=== PATIENT | female | born 1930 | race Caucasian/White ===

== ENCOUNTER 2016-12-20 19:06 | Emergency (ER) | payer MEDICARE, MEDICAID ==
[2016-12-20 19:44] VITALS: BP 145/65
[2016-12-20] MEDS ORDERED: Sodium Chloride 0.9% 10 ML Syringe FLUSH PRN (19:49)
[2016-12-20] MEDS ORDERED: Sodium Chloride 0.9% 1,000 ML IV SCH (20:00)
[2016-12-20 21:04] LABS: CHLORIDE,CL 104 mmol/L (98-107); SODIUM,NA 138 mmol/L (136-145)
[2016-12-20] MEDS ORDERED: diphenhydrAMINE 25 MG Cap PO ONE (21:34)
[2016-12-20] MEDS ORDERED: Meclizine 25 MG Tab PO ONE (21:34)
[2016-12-20] MEDS ORDERED: Cephalexin 500 MG Cap PO ONE (21:43)
--- NOTE | 2016-12-20 22:03 | EDM.PDOC ---
ED HPI GENERAL MEDICAL PROBLEM - General Chief Complaint: ENT Problem Stated Complaint: Dizziness, sinus congestion Time Seen by Provider: 12/20/16 20:50 Source of Information: Reports: Patient History Limitations: Reports: No Limitations - History of Present Illness INITIAL COMMENTS - FREE TEXT/NARRATIVE: Patient arrives with complaints of dizziness. She also has multiple chronic condition complaints that are not new including sinus infection, soreness to her back, chills, fever, weakness, all well documented complaints. She has had dizziness in the past. Meclizine has made it worse, though she states it usually does make this better. No nausea, vomiting, urinary symptoms, no blood in stool or urine, no SOB, chest pain, headaches. History of HTN, hypothyroidism, diabetes, she reports an old possible [place] and CVA, pacemaker insertion, copd, chf. Onset: Gradual Onset Date: 12/17/16 Duration: Getting Worse Location: Reports: Head Quality: Reports: Other (dizziness) Severity: Moderate Worsens with: Reports: Movement Associated Symptoms: Reports: Fever/Chills whole body, fibermyalgia Pain Score (Numeric/FACES): 8 - Related Data Allergies Allergy/AdvReac Type Severity Reaction Status Date / Time acetaminophen [From Tylenol] Allergy Cannot Verified 12/20/16 19:44 Remember amoxicillin [Amoxicillin] Allergy Cannot Verified 12/20/16 19:44 Remember aspirin Allergy Stomach Verified 12/20/16 19:44 Upset Dairy Products Allergy Cannot Verified 12/20/16 19:44 Remember Penicillins Allergy Rash Verified 12/20/16 19:44 propoxyphene HCl Allergy Cannot Verified 12/20/16 19:44 [From Darvon] Remember eggs Allergy Cannot Uncoded 12/20/16 19:44 Remember Home Meds: Home Meds Albuterol Sulfate [Albuterol Sulfate HFA] 8.5 gm IH ASDIRECTED PRN 09/08/13 [ History] Aspirin [Halfprin] 81 mg PO DAILY 09/08/13 [History] Atenolol [Tenormin] 25 mg PO DAILY #30 tablet 09/08/13 [Rx] Cod Liver Oil 1 cap PO DAILY 09/08/13 [History] Fish Oil/[place]-3 Fatty Acids [Fish Oil 1,000 MG] 1 gm PO DAILY 09/08/13 [History ] Furosemide [Lasix] 20 mg PO DAILY PRN 09/08/13 [History] Sucralfate [Carafate] 1 gm PO BID 09/08/13 [History] Levothyroxine [Synthroid] 25 mcg PO ACBRK #0 03/06/15 [Rx] Meclizine HCl [Antivert] 25 mg PO Q4H PRN 12/26/15 [History] Ondansetron [Zofran ODT] 4 mg PO Q6H PRN 12/26/15 [History] Nitroglycerin [IJP: Nitroglycerin] 0.4 mg SL ASDIRECTED PRN #30 tablet, sublingual 12/27/15 [Rx] Past Medical History HEENT History: Reports: Cataract Cardiovascular History: Reports: Angina, Hypertension, Pacemaker, Syncope Respiratory History: Reports: Asthma, COPD, SOB, Other (See Below) Other Respiratory History: emphysema Gastrointestinal History: Reports: GERD Genitourinary History: Reports: Urinary Incontinence Musculoskeletal History: Reports: Fibromyalgia Neurological History: Reports: Vertigo Endocrine/Metabolic History: Reports: Diabetes, Type II Oncologic (Cancer) History: Reports: Cervix - Past Surgical History GI Surgical History: Reports: Appendectomy, Cholecystectomy Social & Family History - Tobacco Use Smoking Status *Q: Never Smoker Second Hand Smoke Exposure: No - Alcohol Use Days Per Week of Alcohol Use: 0 - Recreational Drug Use Recreational Drug Use: No ED ROS GENERAL - Review of Systems Review Of Systems: See Below Constitutional: Reports: Fever, Chills HEENT: Reports: Eye Discharge, Sinus Problem Respiratory: Reports: No Symptoms Cardiovascular: Reports: Lightheadedness Endocrine: Reports: No Symptoms GI/Abdominal: Reports: No Symptoms : Reports: No Symptoms Musculoskeletal: Reports: Muscle Stiffness, Other (pain reported all over due to fibromyalgia) Skin: Reports: No Symptoms Neurological: Reports: Dizziness Psychiatric: Reports: No Symptoms Hematologic/Lymphatic: Reports: No Symptoms Immunologic: Reports: No Symptoms ED EXAM, DIZZINESS - Physical Exam Exam: See Below Exam Limited By: No Limitations General Appearance: Alert, WD/WN, No Apparent Distress Eye Exam: Bilateral Eye: EOMI, PERRL Ears: Normal TMs Nose: Nasal Tenderness, Nasal Swelling Throat/Mouth: Inflammation Head Exam: Atraumatic, Normocephalic Neck: Lymphadenopathy (L), Lymphadenopathy (R) Respiratory/Chest: No Respiratory Distress, No Accessory Muscle Use, Chest Non- Tender, Rales Cardiovascular: Normal Peripheral Pulses, Regular Rate, Rhythm, Systolic Murmur , Other (atrial paced) Neurological: Alert, Normal Mood/Affect, Normal Dorsiflexion, CN II-XII Intact, Normal Plantar Flexion, Normal Gait, Normal Reflexes, No Motor/Sensory Deficits , Oriented x 3 Back Exam: Normal Inspection Extremities: Normal Inspection, Normal Range of Motion, Non-Tender, No Pedal Edema, Normal Capillary Refill Psychiatric: Normal Affect, Normal Mood Skin Exam: Warm, Dry, Intact, Normal Color, No Rash EKG INTERPRETATION EKG Date: 12/20/16 Time: 20:23 Rhythm: Other (atrial paced, v paced) Rate (Beats/Min): 72 Course - Vital Signs Last Recorded V/S: Last Vital Signs Temp 37.3 C 12/20/16 19:36 Pulse 61 12/20/16 19:36 Resp 16 12/20/16 19:36 BP 145/65 H 12/20/16 19:36 Pulse Ox 95 12/20/16 19:36 - Orders/Labs/Meds Orders: Active Orders 24 hr Category Date Time Status EKG Documentation Completion [RC] ROUTINE Care 12/20/16 19:47 Active Chest 2V [CR] Stat Exams 12/20/16 19:47 Taken Saline Lock Insert [OM.PC] Routine Oth 12/20/16 19:49 Ordered Labs: Laboratory Tests 12/20/16 12/20/16 12/20/16 Range/Units 20:00 20:18 20:18 WBC 11.8 H (4.0-10.0) x10^3/uL RBC 3.96 L (4.00-5.50) x10^6/uL Hgb 12.9 (12.0-16.0) g/dL Hct 38.8 (33.0-47.0) % MCV 98.0 H (78.0-93.0) fL MCH 32.6 H (26.0-32.0) pg MCHC 33.2 (32.0-36.0) g/dL RDW Coeff of Ghada 13.4 (10.0-15.0) % Plt Count 295 (130-400) x10^3/uL Neut % (Auto) 69.9 (50.0-80.0) % Lymph % (Auto) 18.7 L (25.0-50.0) % Burke % (Auto) 8.7 (2.0-11.0) % Eos % (Auto) 2.3 (0.0-4.0) % Baso % (Auto) 0.4 (0.2-1.2) % PT 10.4 (10.0-12.8) SEC INR 0.9 L (2.0-3.5) Sodium (136-145) mmol/L Potassium (3.5-5.1) mmol/L Chloride (98-107) mmol/L Carbon Dioxide (21-32) mmol/L BUN (7-18) mg/dL Creatinine (0.55-1.02) mg/dL Est Cr Clr Drug Dosing Estimated GFR (MDRD) Glucose (74-106) mg/dL Calcium (8.5-10.1) mg/dL Corrected Calcium (8.5-10.1) mg/dL Magnesium (1.8-2.4) mg/dL Total Bilirubin (0.2-1.0) mg/dL AST (15-37) U/L ALT (14-59) U/L Alkaline Phosphatase (46-116) U/L Creatine Kinase (26-192) U/L Creatine Kinase Index (0.0-4.0) % CK-MB (CK-2) (0.0-3.6) ng/mL Troponin I (<=0.056) ng/mL C-Reactive Protein (<=0.9) mg/dL B-Natriuretic Peptide (<=450) pg/mL Total Protein (6.4-8.2) g/dL Albumin (3.4-5.0) g/dL Globulin Albumin/Globulin Ratio TSH, Ultra Sensitive (0.358-3.74) uIU/mL Urine Color Yellow (YELLOW) Urine Appearance Clear (CLEAR) Urine pH 6.0 (5.0-8.0) Ur Specific Fries <=1.005 Urine Protein Negative (NEGATIVE) mg/dL Urine Glucose (UA) Negative (NEGATIVE) mg/dL Urine Ketones Negative (NEGATIVE) mg/dL Urine Occult Blood Negative (NEGATIVE) Urine Nitrite Negative (NEGATIVE) Urine Bilirubin Negative (NEGATIVE) Urine Urobilinogen 0.2 (0.2) EU/dL Ur Leukocyte Esterase Negative (NEGATIVE) Urine RBC 0-5 (NOT SEEN) /HPF Urine WBC 0-5 (NOT SEEN) /HPF Ur Squamous Epith Cells Few H (NEGATIVE) /HPF Urine Bacteria Rare (NEGATIVE) /HPF Urine Mucus Not seen (NEGATIVE) /LPF 12/20/16 Range/Units 20:18 WBC (4.0-10.0) x10^3/uL RBC (4.00-5.50) x10^6/uL Hgb (12.0-16.0) g/dL Hct (33.0-47.0) % MCV (78.0-93.0) fL MCH (26.0-32.0) pg MCHC (32.0-36.0) g/dL RDW Coeff of Ghada (10.0-15.0) % Plt Count (130-400) x10^3/uL Neut % (Auto) (50.0-80.0) % Lymph % (Auto) (25.0-50.0) % Burke % (Auto) (2.0-11.0) % Eos % (Auto) (0.0-4.0) % Baso % (Auto) (0.2-1.2) % PT (10.0-12.8) SEC INR (2.0-3.5) Sodium 138 (136-145) mmol/L Potassium 4.1 (3.5-5.1) mmol/L Chloride 104 (98-107) mmol/L Carbon Dioxide 27 (21-32) mmol/L BUN 19 H (7-18) mg/dL Creatinine 1.0 (0.55-1.02) mg/dL Est Cr Clr Drug Dosing TNP Estimated GFR (MDRD) 53 Glucose 124 H (74-106) mg/dL Calcium 8.2 L (8.5-10.1) mg/dL Corrected Calcium 8.60 (8.5-10.1) mg/dL Magnesium 2.1 (1.8-2.4) mg/dL Total Bilirubin 0.3 (0.2-1.0) mg/dL AST 15 (15-37) U/L ALT 23 (14-59) U/L Alkaline Phosphatase 48 (46-116) U/L Creatine Kinase 96 (26-192) U/L Creatine Kinase Index 0.8 (0.0-4.0) % CK-MB (CK-2) 0.8 (0.0-3.6) ng/mL Troponin I < 0.017 (<=0.056) ng/mL C-Reactive Protein 0.3 (<=0.9) mg/dL B-Natriuretic Peptide 353 (<=450) pg/mL Total Protein 7.2 (6.4-8.2) g/dL Albumin 3.5 (3.4-5.0) g/dL Globulin 3.7 Albumin/Globulin Ratio 0.95 TSH, Ultra Sensitive 7.003 H (0.358-3.74) uIU/mL Urine Color (YELLOW) Urine Appearance (CLEAR) Urine pH (5.0-8.0) Ur Specific Fries Urine Protein (NEGATIVE) mg/dL Urine Glucose (UA) (NEGATIVE) mg/dL Urine Ketones (NEGATIVE) mg/dL Urine Occult Blood (NEGATIVE) Urine Nitrite (NEGATIVE) Urine Bilirubin (NEGATIVE) Urine Urobilinogen (0.2) EU/dL Ur Leukocyte Esterase (NEGATIVE) Urine RBC (NOT SEEN) /HPF Urine WBC (NOT SEEN) /HPF Ur Squamous Epith Cells (NEGATIVE) /HPF Urine Bacteria (NEGATIVE) /HPF Urine Mucus (NEGATIVE) /LPF Meds: Medications Discontinued Medications Generic Name Dose Route Start Last Admin Trade Name Freq PRN Reason Stop Dose Admin Cephalexin 500 mg 12/20/16 21:43 Keflex PO 12/20/16 21:44 ONETIME ONE Diphenhydramine HCl 25 mg 12/20/16 21:34 Benadryl PO 12/20/16 21:35 ONETIME ONE Sodium Chloride 1,000 mls @ 500 mls/hr 12/20/16 20:00 12/20/16 20:30 Normal Saline IV 500 mls/hr ASDIRECTED YAMILETH Administration Meclizine HCl 25 mg 12/20/16 21:34 Antivert PO 12/20/16 21:35 ONETIME ONE Sodium Chloride 10 ml 12/20/16 19:49 Saline Flush FLUSH ASDIRECTED PRN Keep Vein Open Departure - Departure Time of Disposition: 22:17 Disposition: Home, Self-Care 01 Condition: Good Clinical Impression: Dizziness - Discharge Information Instructions: Labyrinthitis, [id number] Referrals: Melyssa Kendall DO [Primary Care Provider] - Forms: ED Department Discharge Additional Instructions: Follow up with your primary provider for symptom management Your TSH level is 7 which is high and you should address increasing your synthroid All other labwork is normal. I am going to prescribe cephalexin with your history of sinus infection. You may continue to try the atrovert and dramamine or benadryl. You may also want to visit with someone regarding the negra maneuver if this dizziness is related to ear problems. Also visit with your primary regarding a cardiology and neurology consultation to rule out these areas of causes. Stay hydrated. Please call us with any questions or concerns. - Problem List & Annotations (1) Dizziness SNOMED Code(s): 150525811, [id number] Code(s): R42 - DIZZINESS AND GIDDINESS Status: Acute Priority: Low - Problem List Review Problem List Initiated/Reviewed/Updated: Yes - My Orders Last 24 Hours: My Active Orders 12/20/16 19:47 EKG Documentation Completion [RC] ROUTINE Chest 2V [CR] Stat 12/20/16 19:49 Saline Lock Insert [OM.PC] Routine - Assessment/Plan Last 24 Hours: My Active Orders 12/20/16 19:47 EKG Documentation Completion [RC] ROUTINE Chest 2V [CR] Stat 12/20/16 19:49 Saline Lock Insert [OM.PC] Routine Assessment:: dizziness sinus infection Plan: Follow up with your primary provider for symptom management Your TSH level is 7 which is high and you should address increasing your synthroid All other labwork is normal. I am going to prescribe cephalexin with your history of sinus infection. You may continue to try the atrovert and dramamine or benadryl. You may also want to visit with someone regarding the negra maneuver if this dizziness is related to ear problems. Also visit with your primary regarding a cardiology and neurology consultation to rule out these areas of causes. Stay hydrated. Please call us with any questions or concerns.
== END 2016-12-20 22:30 | disposition home or self-care (01) ==
LOC: VM.ED 19:06
DX: R42 Dizziness and giddiness (principal); I10 Essential (primary) hypertension; I20.9 Angina pectoris, unspecified; Z95.0 Presence of cardiac pacemaker; J45.909 Unspecified asthma, uncomplicated; J44.9 Chronic obstructive pulmonary disease, unspecified; K21.9 Gastro-esophageal reflux disease without esophagitis; E11.9 Type 2 diabetes mellitus without complications; Z85.41 Personal history of malignant neoplasm of cervix uteri; Z90.49 Acquired absence of other specified parts of digestive tract; Z79.82 Long term (current) use of aspirin; Z79.899 Other long term (current) drug therapy; Z88.0 Allergy status to penicillin; Z88.8 Allergy status to other drugs, medicaments and biological substances; Z91.012 Allergy to eggs
CPT/HCPCS: 36415; 71020; 80053; 81001; 82550; 82553; 83735; 83880; 84443; 84484; 85025; 85610; 86140; 93005; 96360; 96361; 99284; A9270; J7030

== ENCOUNTER 2017-01-03 20:31 | Emergency (ER) | payer MEDICARE, MEDICAID ==
[2017-01-03 20:44] VITALS: BP 124/62
[2017-01-03] MEDS ORDERED: Ketorolac 30 MG/ML SDV IM ONE (20:44)
[2017-01-03] MEDS ORDERED: Take Home: traMADol 50 MG, 4 Tab Pack PO ONE (21:12)
--- NOTE | 2017-01-05 00:54 | ER ---
Date of Service: 01/03/2017 SUBJECTIVE: Alice presents emergency room with complaints of neck and back pain as well as discomfort across her shoulders. She states the discomfort is worse with movement. She does have a history of fibromyalgia. She states that she has been having this discomfort for some time but decided to come in to the emergency room for evaluation today. The patient states that she is not experiencing any chest pain or shortness of breath and states this is similar discomfort to what she has experienced in the past from her fibromyalgia. PAST MEDICAL HISTORY: 1. Hypertension. 2. Dyslipidemia. 3. Hypothyroidism. MEDICATIONS: 1. Atenolol. 2. Aspirin. 3. Albuterol sulfate. 4. Lasix. 5. [place]-3 fish oil. 6. Cod liver oil. 7. Carafate. 8. Nitroglycerin. 9. Antivert. 10.Synthroid. ALLERGIES: Amoxicillin, acetaminophen, aspirin, dairy products, penicillin, propoxyphene, and eggs. REVIEW OF SYSTEMS: General: Denies any fever, chills, chest pain, shortness of breath, abdominal pain, nausea, vomiting, or diarrhea. PHYSICAL EXAMINATION: General: This is an 86-year-old female patient, who is in no acute distress. Vital signs: Blood pressure is 124/62, pulse rate is 95, temperature is 37.4, respiratory rate 16, O2 saturation is 95%. Skin: Warm, pink, and dry. HEENT: Head is normocephalic, atraumatic. Eyes, PERRLA. Extraocular movements are intact. Lungs: Clear to auscultation. Heart: Regular rate and rhythm. Spine: She does have discomfort on palpation to the paraspinal muscles of her cervical, thoracic, and lumbar spine, as well as discomfort across the tops of her shoulders. No obvious trauma abnormal findings noted. There are no obvious erythema or other pathology noted. Neurovascular: Circulation, sensation, and motor function are all within normal limits in distal portion of her extremities. EMERGENCY ROOM COURSE: The patient was given injection of Toradol 30 mg IM. She did report some improvement in her discomfort. She remained stable in my care in the emergency room. ASSESSMENT: Acute on chronic pain. PLAN: The patient will be discharged. I advised her to follow up with her primary care provider in the next 7 to 10 days. All questions were answered. MWK: 01/04/2017 18:58:17 MODL: 01/05/2017 00:47:10 /[id number]
== END 2017-01-03 21:33 | disposition home or self-care (01) ==
LOC: VM.ED 20:31
DX: G89.29 Other chronic pain (principal); M54.2 Cervicalgia; M54.5 Low back pain; M54.6 Pain in thoracic spine; M25.511 Pain in right shoulder; M25.512 Pain in left shoulder; I10 Essential (primary) hypertension; E03.9 Hypothyroidism, unspecified; Z88.1 Allergy status to other antibiotic agents; Z88.8 Allergy status to other drugs, medicaments and biological substances; Z91.011 Allergy to milk products; Z88.0 Allergy status to penicillin; Z91.012 Allergy to eggs
CPT/HCPCS: 96372; 99283; A9270; J1885

== ENCOUNTER 2017-01-07 00:24 | Emergency (ER) | payer MEDICARE, MEDICAID ==
[2017-01-07 00:28] VITALS: BP 155/72
--- NOTE | 2017-01-07 00:45 | EDM.PDOCBH ---
ED HPI GENERAL MEDICAL PROBLEM - General Chief Complaint: Behavioral/Psych Stated Complaint: "nerves" Time Seen by Provider: 01/07/17 00:43 Source of Information: Reports: Patient, RN, RN Notes Reviewed History Limitations: Reports: No Limitations - History of Present Illness INITIAL COMMENTS - FREE TEXT/NARRATIVE: Patient presents to the ED at [facility] complaining of acute on chronic back pain that started to get worse last week. She states she was in this ER last Wednesday for the same problem. She was given in injection of Toradol and a take home pack of Tramadol and sent home. She was advised to follow up with her Primary this week. She states she has an appointment with a new Primary this Wednesday. No new injury or trauma. No headaches. No SOB or chest pain. Patient denies any trouble with ambulation. Patient denies any bowel or bladder problems. No numbness, tingling, or paresthesia. Patient states the pain starts at her tailbone and radiation up to her neck. Pain is a dull ache. Onset: Gradual Duration: Chronic, Waxing/Waning Location: Reports: Neck, Back Quality: Reports: Dull Severity: Mild Improves with: Reports: Rest Worsens with: Reports: Movement Context: Denies: Activity, Exercise, Lifting, Sick Contact, Trauma Associated Symptoms: Reports: No Other Symptoms Lower Back Pain Score (Numeric/FACES): 8 - Related Data Allergies Allergy/AdvReac Type Severity Reaction Status Date / Time acetaminophen [From Tylenol] Allergy Other Verified 01/07/17 00:32 amoxicillin [Amoxicillin] Allergy Rash Verified 01/07/17 00:32 aspirin Allergy Stomach Verified 01/07/17 00:32 Upset Dairy Products Allergy Cough Verified 01/07/17 00:32 Penicillins Allergy Rash Verified 01/07/17 00:32 propoxyphene HCl Allergy Other Verified 01/07/17 00:32 [From Darvon] eggs Allergy Cough Uncoded 01/07/17 00:32 Home Meds: Home Meds Albuterol Sulfate [Albuterol Sulfate HFA] 8.5 gm IH ASDIRECTED PRN 09/08/13 [ History] Aspirin [Halfprin] 81 mg PO DAILY 09/08/13 [History] Atenolol [Tenormin] 25 mg PO DAILY #30 tablet 09/08/13 [Rx] Cod Liver Oil 1 cap PO DAILY 09/08/13 [History] Fish Oil/[place]-3 Fatty Acids [Fish Oil 1,000 MG] 1 gm PO DAILY 09/08/13 [History ] Furosemide [Lasix] 20 mg PO DAILY PRN 09/08/13 [History] Sucralfate [Carafate] 1 gm PO BID 09/08/13 [History] Levothyroxine [Synthroid] 25 mcg PO ACBRK #0 03/06/15 [Rx] Meclizine HCl [Antivert] 25 mg PO Q4H PRN 12/26/15 [History] Nitroglycerin [IJP: Nitroglycerin] 0.4 mg SL ASDIRECTED PRN #30 tablet, sublingual 12/27/15 [Rx] traMADol HCl [Tramadol HCl] 50 mg PO ASDIRECTED PRN 01/07/17 [History] Past Medical History HEENT History: Reports: Cataract Cardiovascular History: Reports: Angina, Hypertension, Pacemaker, Syncope Respiratory History: Reports: Asthma, COPD, SOB, Other (See Below) Other Respiratory History: emphysema Gastrointestinal History: Reports: GERD Genitourinary History: Reports: Urinary Incontinence Musculoskeletal History: Reports: Arthritis, Fibromyalgia Neurological History: Reports: Vertigo Endocrine/Metabolic History: Reports: Diabetes, Type II Oncologic (Cancer) History: Reports: Cervix - Past Surgical History GI Surgical History: Reports: Appendectomy, Cholecystectomy Social & Family History - Tobacco Use Smoking Status *Q: Never Smoker Second Hand Smoke Exposure: No - Caffeine Use Caffeine Use: Reports: Coffee - Alcohol Use Days Per Week of Alcohol Use: 0 - Recreational Drug Use Recreational Drug Use: No ED ROS GENERAL - Review of Systems Review Of Systems: See Below Constitutional: Denies: Fever, Chills, Weakness Respiratory: Denies: Shortness of Breath, Cough Cardiovascular: Denies: Chest Pain, Palpitations Musculoskeletal: Reports: Neck Pain, Back Pain Skin: Reports: No Symptoms Neurological: Reports: No Symptoms. Denies: Dizziness, Headache, Numbness, Paresthesia, Tingling ED EXAM, BEHAVIORAL HEALTH - Physical Exam Exam: See Below Exam Limited By: No Limitations General Appearance: Alert, No Apparent Distress Head: Atraumatic, Normocephalic Neck: Normal Inspection, Supple, Non-Tender, Full Range of Motion Respiratory/Chest: No Respiratory Distress, Lungs Clear, Normal Breath Sounds Cardiovascular: Regular Rate, Rhythm Back Exam: Normal Inspection, Paraspinal Tenderness Extremities: Normal Inspection Neurological: Alert, Oriented x 3 Skin Exam: Warm, Dry, Intact, Normal color, No rash COURSE, BEHAVIORAL HEALTH COMP - Course Vital Signs: Last Vital Signs Temp 36.9 C 01/07/17 00:25 Pulse 100 01/07/17 00:25 Resp 18 01/07/17 00:25 BP 155/72 H 01/07/17 00:25 Pulse Ox 94 L 01/07/17 00:25 Orders, Labs, Meds: Active Orders 24 hr Category Date Time Status Ketorolac [Toradol] Med 01/07/17 00:55 Once 60 mg IM ONETIME ONE Departure - Departure Time of Disposition: :01 Disposition: Home, Self-Care 01 Condition: Good Clinical Impression: Acute exacerbation of chronic low back pain Chronic pain Qualifiers: Chronic pain type: other chronic pain Qualified Code(s): G89.29 - Other chronic pain - Discharge Information Instructions: Chronic Pain, Back Exercises, Back Pain, Adult Referrals: Yahaira Gentile MD [Physician] - Forms: ED Department Discharge Additional Instructions: 1. Stay well hydrated and rest 2. Alternate heat/ice to your back to help with pain 3. Take pain medication sparingly; this medication can make you drowsy 4. May take Tylenol as needed 5. Keep appointment for this Wednesday with Dr. Gentile for a recheck and to establish care - Problem List Review Problem List Initiated/Reviewed/Updated: Yes - My Orders Last 24 Hours: My Active Orders 01/07/17 00:55 Ketorolac [Toradol] 60 mg IM ONETIME ONE - Assessment/Plan Last 24 Hours: My Active Orders 01/07/17 00:55 Ketorolac [Toradol] 60 mg IM ONETIME ONE
[2017-01-07] MEDS ORDERED: Ketorolac 60 MG/2 ML SDV IM ONE (00:55)
[2017-01-07] MEDS ORDERED: Take Home: traMADol 50 MG, 4 Tab Pack PO ONE (01:04)
== END 2017-01-07 01:30 | disposition home or self-care (01) ==
LOC: VM.ED 00:24
DX: M54.5 Low back pain (principal); G89.29 Other chronic pain; I10 Essential (primary) hypertension; J45.909 Unspecified asthma, uncomplicated; J44.9 Chronic obstructive pulmonary disease, unspecified; K21.9 Gastro-esophageal reflux disease without esophagitis; M19.90 Unspecified osteoarthritis, unspecified site; E11.9 Type 2 diabetes mellitus without complications; Z90.49 Acquired absence of other specified parts of digestive tract; Z85.41 Personal history of malignant neoplasm of cervix uteri; Z79.82 Long term (current) use of aspirin; Z79.899 Other long term (current) drug therapy; Z88.6 Allergy status to analgesic agent; Z88.1 Allergy status to other antibiotic agents; Z88.0 Allergy status to penicillin; Z88.8 Allergy status to other drugs, medicaments and biological substances; Z91.012 Allergy to eggs
CPT/HCPCS: 96372; 99283; A9270; J1885

== ENCOUNTER 2019-12-16 00:14 | Observation (INO) | payer MEDICARE, MEDICAID ==
--- NOTE | 2019-12-16 00:57 | EDM.PDOC ---
ED HPI GENERAL MEDICAL PROBLEM - General Chief Complaint: Cardiovascular Problem Stated Complaint: Chest pain, generalized pain all over Time Seen by Provider: 12/16/19 00:30 Source of Information: Reports: Patient, EMS, EMS Notes Reviewed History Limitations: Reports: No Limitations - History of Present Illness INITIAL COMMENTS - FREE TEXT/NARRATIVE: Comes into the emergency department via EMS with complaints of chest discomfort. Patient called 911 tonight after she felt someone was trying to break into her apartment. Once police were on scene she had told the police that she had been having some chest pain throughout the entire day and they suggested that she in the emergency department. Patient states that she has a longstanding history of cardiac disease and chronic chest pain. Patient states that she has chest pain almost on a daily basis. Her chest pain was there this morning and has continued throughout the day it has not progressively gotten worse and has not gotten any better. She states the discomfort is the same sensation that she experiences on a daily basis when she has the chest pain. She also states that it is tender to palpate over her entire chest region. Also has fibromyalgia and often states that that is a major flare up of the chronic chest pain. Patient denies a chest pain causing her shortness of breath, radiation shoulder, head ache, nausea vomiting, diaphoresis, GI upset, loss of bowel or bladder continence, or peripheral edema. Patient states that she is been relatively healthy. She denies any COVID-19 symptoms. Onset: Gradual Quality: Reports: Ache Severity: Mild Improves with: Reports: None Worsens with: Reports: None Associated Symptoms: Reports: No Other Symptoms mid sternal chest Pain Score (Numeric/FACES): 5 - Related Data Allergies Allergy/AdvReac Type Severity Reaction Status Date / Time acetaminophen [From Tylenol] Allergy Other Verified 12/16/19 00:48 amoxicillin [Amoxicillin] Allergy Rash Verified 12/16/19 00:48 atorvastatin [From Lipitor] Allergy Cannot Verified 12/16/19 00:48 Remember metoprolol Allergy Cannot Verified 12/16/19 00:48 Remember Penicillins Allergy Rash Verified 12/16/19 00:48 propoxyphene HCl Allergy Other Verified 12/16/19 00:48 [From Darvon] aspirin AdvReac Stomach Verified 12/16/19 00:48 Upset Dairy Products AdvReac Cough Verified 12/16/19 00:48 eggs AdvReac Cough Uncoded 12/16/19 00:48 Home Meds: Home Meds Albuterol Sulfate [Albuterol Sulfate HFA] 2 puff IH QID PRN 09/08/13 [History] Cod Liver Oil 1 cap PO DAILY 09/08/13 [History] Furosemide [Lasix] 20 mg PO DAILY 09/08/13 [History] Levothyroxine [Synthroid] 25 mcg PO ACBRK #0 03/06/15 [Rx] Nitroglycerin [IJP: Nitroglycerin] 0.4 mg SL ASDIRECTED PRN #30 tablet, sublingual 12/27/15 [Rx] Atenolol [Tenormin] 12.5 mg PO DAILY 05/25/17 [History] Cholecalciferol (Vitamin D3) [D-2000] 2,000 unit PO DAILY 05/25/17 [History] Ubidecarenone [Co Q-10] 100 mg PO DAILY 05/25/17 [History] Fluticasone Propionate [Flonase] 50 mcg NS DAILY 07/12/17 [History] Olopatadine [Pataday 0.2% Ophth Soln] 1 drop OP DAILY PRN 07/12/17 [History] Trolamine Salicylate [Aspercreme] 1 applic TP BID PRN 07/12/17 [History] Levothyroxine Sodium [Synthroid] 25 mcg PO ACBREAKFAST 12/01/17 [History] Tobramycin/Dexamethasone [Tobramycin-Dexameth Ophth Susp] 1 drop OP TID 12/01/17 [History] Rivaroxaban [Xarelto] 20 mg PO DAILY 12/16/19 [History] Past Medical History HEENT History: Reports: Cataract Cardiovascular History: Reports: Angina, Hypertension, Pacemaker, Syncope Respiratory History: Reports: Asthma, COPD, SOB, Other (See Below) Other Respiratory History: emphysema Gastrointestinal History: Reports: GERD Genitourinary History: Reports: Urinary Incontinence Musculoskeletal History: Reports: Arthritis, Fibromyalgia Neurological History: Reports: Vertigo Endocrine/Metabolic History: Reports: Diabetes, Type II Oncologic (Cancer) History: Reports: Cervix - Past Surgical History GI Surgical History: Reports: Appendectomy, Cholecystectomy Social & Family History - Caffeine Use Caffeine Use: Reports: Coffee ED ROS GENERAL - Review of Systems Review Of Systems: Comprehensive ROS is negative, except as noted in HPI. Constitutional: Reports: No Symptoms HEENT: Reports: No Symptoms Respiratory: Reports: No Symptoms Endocrine: Reports: No Symptoms GI/Abdominal: Reports: No Symptoms : Reports: No Symptoms Musculoskeletal: Reports: No Symptoms Skin: Reports: No Symptoms Neurological: Reports: No Symptoms Psychiatric: Reports: No Symptoms Hematologic/Lymphatic: Reports: No Symptoms Immunologic: Reports: No Symptoms ED EXAM, GENERAL - Physical Exam Exam: See Below Exam Limited By: No Limitations General Appearance: Alert, WD/WN, No Apparent Distress Head: Atraumatic, Normocephalic Neck: Normal Inspection, Supple, Non-Tender, Full Range of Motion Respiratory/Chest: No Respiratory Distress, Lungs Clear, Normal Breath Sounds, No Accessory Muscle Use, Chest Non-Tender Cardiovascular: Normal Peripheral Pulses, Regular Rate, Rhythm, No Edema Peripheral Pulses: 3+: Radial (L), Radial (R) GI/Abdominal: Normal Bowel Sounds, Soft, Non-Tender, No Distention, No Mass Back Exam: Normal Inspection, Full Range of Motion Extremities: Normal Inspection, Normal Range of Motion, Non-Tender, No Pedal Edema, Normal Capillary Refill Neurological: Alert, Oriented Psychiatric: Normal Affect, Normal Mood Skin Exam: Warm, Dry, Intact, Normal Color Course - Vital Signs Last Recorded V/S: Last Vital Signs Temp 37.1 C 12/16/19 00:14 Pulse 74 12/16/19 00:14 Resp 16 12/16/19 00:14 BP 153/71 H 12/16/19 00:14 Pulse Ox 95 12/16/19 00:14 - Orders/Labs/Meds Orders: Active Orders 24 hr Category Date Time Status EKG Documentation Completion [RC] STAT Care 12/16/19 00:39 Active Chest 1V Frontal [CR] Stat Exams 12/16/19 00:39 Taken Labs: Laboratory Tests 12/16/19 12/16/19 12/16/19 Range/Units 01:03 01:03 01:03 WBC 9.7 (4.0-10.0) x10^3/uL RBC 4.13 (4.00-5.50) x10^6/uL Hgb 13.1 (12.0-16.0) g/dL Hct 38.7 (33.0-47.0) % MCV 93.7 H D (78.0-93.0) fL MCH 31.7 (26.0-32.0) pg MCHC 33.9 (32.0-36.0) g/dL RDW Coeff of Ghada 12.7 (10.0-15.0) % Plt Count 273 (130-400) x10^3/uL Add Manual Diff Yes Neutrophils % (Manual) 63 (50-80) % Band Neutrophils % 6 (0-6) % Lymphocytes % (Manual) 14 L (25-50) % Monocytes % (Manual) 15 H (2-11) % Eosinophils % (Manual) 2 (0-4) % Hypersegmented Neuts Rare H Vacuolated Monocytes 2+ moderate H Toxic Granulation 1+ slight H Platelet Estimate Adequate Macrocytosis 1+ slight H PT 15.5 H (9.5-12.3) SEC INR 1.5 L (2.0-3.5) Sodium 135 L (136-145) mmol/L Potassium 4.1 (3.5-5.1) mmol/L Chloride 98 (98-107) mmol/L Carbon Dioxide 27 (21-32) mmol/L Anion Gap 14.1 (10-20) mmol/L BUN 17 (7-18) mg/dL Creatinine 0.8 (0.55-1.02) mg/dL Est Cr Clr Drug Dosing 41.97 mL/min Estimated GFR (MDRD) > 60 Glucose 140 H (74-106) mg/dL Calcium 9.0 (8.5-10.1) mg/dL Corrected Calcium 9.32 (8.5-10.1) mg/dL Total Bilirubin 0.3 (0.2-1.0) mg/dL AST 33 (15-37) U/L ALT 37 (14-59) U/L Alkaline Phosphatase 66 (46-116) U/L POC Troponin I (0.00-0.08) ng/mL Total Protein 7.4 (6.4-8.2) g/dL Albumin 3.6 (3.4-5.0) g/dL Globulin 3.8 Albumin/Globulin Ratio 0.95 //20 Range/Units 01:05 WBC (4.0-10.0) x10^3/uL RBC (4.00-5.50) x10^6/uL Hgb (12.0-16.0) g/dL Hct (33.0-47.0) % MCV (78.0-93.0) fL MCH (26.0-32.0) pg MCHC (32.0-36.0) g/dL RDW Coeff of Ghada (10.0-15.0) % Plt Count (130-400) x10^3/uL Add Manual Diff Neutrophils % (Manual) (50-80) % Band Neutrophils % (0-6) % Lymphocytes % (Manual) (25-50) % Monocytes % (Manual) (2-11) % Eosinophils % (Manual) (0-4) % Hypersegmented Neuts Vacuolated Monocytes Toxic Granulation Platelet Estimate Macrocytosis PT (9.5-12.3) SEC INR (2.0-3.5) Sodium (136-145) mmol/L Potassium (3.5-5.1) mmol/L Chloride (98-107) mmol/L Carbon Dioxide (21-32) mmol/L Anion Gap (10-20) mmol/L BUN (7-18) mg/dL Creatinine (0.55-1.02) mg/dL Est Cr Clr Drug Dosing mL/min Estimated GFR (MDRD) Glucose (74-106) mg/dL Calcium (8.5-10.1) mg/dL Corrected Calcium (8.5-10.1) mg/dL Total Bilirubin (0.2-1.0) mg/dL AST (15-37) U/L ALT (14-59) U/L Alkaline Phosphatase (46-116) U/L POC Troponin I 0.00 (0.00-0.08) ng/mL Total Protein (6.4-8.2) g/dL Albumin (3.4-5.0) g/dL Globulin Albumin/Globulin Ratio Departure - Departure Time of Disposition: 01:40 Disposition: Home, Self-Care 01 Condition: Fair Clinical Impression: Pleuritic chest pain - Discharge Information *PRESCRIPTION DRUG MONITORING PROGRAM REVIEWED*: Not Applicable *COPY OF PRESCRIPTION DRUG MONITORING REPORT IN PATIENT [facility]: Not Applicable Instructions: Chest Wall Pain, [id number], Nonspecific Chest Pain, Adult Forms: ED Department Discharge Additional Instructions: 1. rest 2. increase your water intake 3. Continue all at home medications 4. Activity and diet as tolerated 5. Can take over the counter Tylenol or ibuprofen for any pain or discomfort 6. Follow up with PCP if symptoms continue, return, or progress 7. Call with any questions or concerns Sepsis Event Note (ED) - Focused Exam Vital Signs: Vital Signs Temp Pulse Resp BP Pulse Ox 12/16/19 00:14 37.1 C 74 16 153/71 H 95 - My Orders Last 24 Hours: My Active Orders 12/16/19 00:39 EKG Documentation Completion [RC] STAT Chest 1V Frontal [CR] Stat - Assessment/Plan Last 24 Hours: My Active Orders 12/16/19 00:39 EKG Documentation Completion [RC] STAT Chest 1V Frontal [CR] Stat Assessment:: 1. pleuritic chest pain Plan: 1. Labs completed in the ER. Results reviewed with the patient 2. Chest xray completed in ER. Results reviewed with the patient 3. EKG was completed in ER. Results reviewed with the patient 4. Patient and nursing staff was updated regarding the plan of care 5. Education provided the patient regarding activity, diet, rest, [id number] medication modalities, and follow-up care was provided 6. Patient and family are agreeable to the above plan of care 7. All questions and concerns were addressed with the patient and family prior to discharge
[2019-12-16 01:31] LABS: CHLORIDE,CL 98 mmol/L (98-107); SODIUM,NA 135 mmol/L (136-145)
[2019-12-16 01:33] LABS: ANION GAP 14.1 mmol/L (10-20)
[2019-12-16] MEDS ORDERED: Non-Formulary Medication 1 Each (Nystatin [Nystatin] 1 APPLIC) TOP PRN (03:47)
[2019-12-16] MEDS ORDERED: OLOPATADINE OP PRN (03:47)
[2019-12-16] MEDS ORDERED: Nitroglycerin 0.4 MG Tab.SL SL PRN (03:47)
[2019-12-16] MEDS: Levothyroxine 25 MCG Tab PO SCH (07:41)
[2019-12-16] MEDS: Atenolol 25 MG Tab PO SCH (07:42)
[2019-12-16] MEDS: Cholecalciferol (Vitamin D3) 25 MCG Tab PO SCH (07:42)
[2019-12-16] MEDS: Furosemide 20 MG Tab PO SCH (07:42)
[2019-12-16] MEDS ORDERED: Non-Formulary Medication 1 Each (Ubidecarenone [Co Q-10] 100 MG) PO SCH (08:00)
[2019-12-16] MEDS ORDERED: COD LIVER OIL PO SCH (08:00)
[2019-12-16] MEDS ORDERED: Non-Formulary Medication 1 Each (Rivaroxaban [Xarelto] 20 MG) PO SCH (08:00)
--- NOTE | 2019-12-16 11:18 | CR ---
[id number] RAD/RAD Chest PA or AP 1V EXAM: SINGLE VIEW CHEST. INDICATION: CHEST PAIN COMPARISON: CORRELATION IS MADE WITH DECEMBER 20, 2016 FINDINGS: The lungs are clear The cardiomediastinal contour is stable A pacemaker is seen IMPRESSION: NO PNEUMONIA OR EDEMA Ash Rico MD 12/16/19 0823 Thank you for allowing us to participate in the care of your patient.
[2019-12-16] MEDS ORDERED: Rivaroxaban 10 MG Tab PO SCH (18:00)
--- NOTE | 2019-12-16 20:22 | PCM.PN ---
- General Info Date of Service: 12/16/19 Admission Dx/Problem (Free Text): Hallucinations Functional Status: Reports: Pain Controlled, Tolerating Diet, Ambulating - Review of Systems General: Reports: Weakness, Malaise HEENT: Reports: No Symptoms Pulmonary: Reports: Pleuritic Chest Pain. Denies: Shortness of Breath, Cough Cardiovascular: Reports: Edema. Denies: Chest Pain, Lightheadedness Gastrointestinal: Denies: Abdominal Pain, Nausea, Vomiting Musculoskeletal: Reports: No Symptoms Skin: Reports: No Symptoms Neurological: Reports: Weakness - Patient Data Vitals - Most Recent: Last Vital Signs Temp 98.5 F 12/16/19 18:00 Pulse 70 12/16/19 18:00 Resp 16 12/16/19 14:00 BP 145/69 H 12/16/19 18:00 Pulse Ox 93 L 12/16/19 18:00 Weight - Most Recent: 208 lb I&O - Last 24 Hours: Intake & Output 12/16/19 12/16/19 12/16/19 06:59 14:59 22:59 Intake Total 200 480 120 Output Total 350 400 Balance -150 480 -280 Lab Results Last 24 Hours: Laboratory Results - last 24 hr 12/16/19 12/16/19 12/16/19 Range/Units 01:03 01:03 01:03 WBC 9.7 (4.0-10.0) x10^3/uL RBC 4.13 (4.00-5.50) x10^6/uL Hgb 13.1 (12.0-16.0) g/dL Hct 38.7 (33.0-47.0) % MCV 93.7 H D (78.0-93.0) fL MCH 31.7 (26.0-32.0) pg MCHC 33.9 (32.0-36.0) g/dL RDW Coeff of Ghada 12.7 (10.0-15.0) % Plt Count 273 (130-400) x10^3/uL Add Manual Diff Yes Neutrophils % (Manual) 63 (50-80) % Band Neutrophils % 6 (0-6) % Lymphocytes % (Manual) 14 L (25-50) % Monocytes % (Manual) 15 H (2-11) % Eosinophils % (Manual) 2 (0-4) % Hypersegmented Neuts Rare H Vacuolated Monocytes 2+ moderate H Toxic Granulation 1+ slight H Platelet Estimate Adequate Macrocytosis 1+ slight H PT 15.5 H (9.5-12.3) SEC INR 1.5 L (2.0-3.5) Sodium 135 L (136-145) mmol/L Potassium 4.1 (3.5-5.1) mmol/L Chloride 98 (98-107) mmol/L Carbon Dioxide 27 (21-32) mmol/L Anion Gap 14.1 (10-20) mmol/L BUN 17 (7-18) mg/dL Creatinine 0.8 (0.55-1.02) mg/dL Est Cr Clr Drug Dosing 41.97 mL/min Estimated GFR (MDRD) > 60 Glucose 140 H (74-106) mg/dL Calcium 9.0 (8.5-10.1) mg/dL Corrected Calcium 9.32 (8.5-10.1) mg/dL Total Bilirubin 0.3 (0.2-1.0) mg/dL AST 33 (15-37) U/L ALT 37 (14-59) U/L Alkaline Phosphatase 66 (46-116) U/L POC Troponin I (0.00-0.08) ng/mL Total Protein 7.4 (6.4-8.2) g/dL Albumin 3.6 (3.4-5.0) g/dL Globulin 3.8 Albumin/Globulin Ratio 0.95 06/27/20 Range/Units 01:05 WBC (4.0-10.0) x10^3/uL RBC (4.00-5.50) x10^6/uL Hgb (12.0-16.0) g/dL Hct (33.0-47.0) % MCV (78.0-93.0) fL MCH (26.0-32.0) pg MCHC (32.0-36.0) g/dL RDW Coeff of Ghada (10.0-15.0) % Plt Count (130-400) x10^3/uL Add Manual Diff Neutrophils % (Manual) (50-80) % Band Neutrophils % (0-6) % Lymphocytes % (Manual) (25-50) % Monocytes % (Manual) (2-11) % Eosinophils % (Manual) (0-4) % Hypersegmented Neuts Vacuolated Monocytes Toxic Granulation Platelet Estimate Macrocytosis PT (9.5-12.3) SEC INR (2.0-3.5) Sodium (136-145) mmol/L Potassium (3.5-5.1) mmol/L Chloride (98-107) mmol/L Carbon Dioxide (21-32) mmol/L Anion Gap (10-20) mmol/L BUN (7-18) mg/dL Creatinine (0.55-1.02) mg/dL Est Cr Clr Drug Dosing mL/min Estimated GFR (MDRD) Glucose (74-106) mg/dL Calcium (8.5-10.1) mg/dL Corrected Calcium (8.5-10.1) mg/dL Total Bilirubin (0.2-1.0) mg/dL AST (15-37) U/L ALT (14-59) U/L Alkaline Phosphatase (46-116) U/L POC Troponin I 0.00 (0.00-0.08) ng/mL Total Protein (6.4-8.2) g/dL Albumin (3.4-5.0) g/dL Globulin Albumin/Globulin Ratio Med Orders - Current: Current Medications Atenolol (Tenormin) 12.5 mg PO DAILY [facility] Last Admin: 12/16/19 07:42 Dose: 12.5 mg Documented by: Cholecalciferol (Vitamin D3) 50 mcg PO DAILY [facility] Last Admin: 12/16/19 07:42 Dose: 50 mcg Documented by: Furosemide (Lasix) 20 mg PO DAILY [facility] Last Admin: 12/16/19 07:42 Dose: 20 mg Documented by: Levothyroxine Sodium (Levothyroxine) 25 mcg PO ACBREAKFAST [facility] Last Admin: 12/16/19 07:41 Dose: 25 mcg Documented by: Nitroglycerin (Nitrostat) 0.4 mg SL ASDIRECTED PRN PRN Reason: Chest Pain Rivaroxaban (Xarelto) 15 mg PO WITHDINNER [facility] Last Admin: 12/16/19 18:45 Dose: 15 mg Documented by: Discontinued Medications Non-Formulary Medication (Cod Liver Oil [Cod Liver Oil]) 1 cap PO DAILY [facility] Last Admin: 12/16/19 18:41 Dose: Not Given Documented by: Non-Formulary Medication (Nystatin [Nystatin]) 1 applic TOP BID PRN PRN Reason: Rash Non-Formulary Medication (Olopatadine [Pataday 0.2% Ophth Soln]) 1 drop OP DAILY PRN PRN Reason: Allergies Non-Formulary Medication (Ubidecarenone [Co Q-10]) 100 mg PO DAILY [facility] Last Admin: 12/16/19 18:41 Dose: Not Given Documented by: - Exam General: Alert, Oriented HEENT: Mucous Membr. Moist/[place] Neck: Supple Lungs: Clear to Auscultation, Normal Respiratory Effort Cardiovascular: Regular Rate, Regular Rhythm GI/Abdominal Exam: Normal Bowel Sounds, Soft, Non-Tender Extremities: Pedal Edema (1+) Skin: Warm, Dry Neurological: No New Focal Deficit Sepsis Event Note - Evaluation Sepsis Screening Result: No Definite Risk - Focused Exam Vital Signs: Vital Signs Temp Pulse Resp BP Pulse Ox 12/16/19 18:00 98.5 F 70 145/69 H 93 L 12/16/19 14:00 98.8 F 64 16 138/95 H 95 Date Exam was Performed: 12/16/19 Time Exam was Performed: 20:17 - Problem List & Annotations (1) Hallucinations SNOMED Code(s): 9534962 Code(s): R44.3 - HALLUCINATIONS, UNSPECIFIED Status: Acute Priority: High Current Visit: Yes - Problem List Review Problem List Initiated/Reviewed/Updated: Yes - Assessment Assessment:: Hallucinations - Plan Plan:: Patient admits to ongoing pleuritic chest discomfort. States "has been like this for years". Admits to leg discomfort, asks for lotion to legs as that typically helps discomfort and the "tightness" of them. Does have edema to lower legs. patient is ambulating with staff. Family was to present today for discharge but was unable to, plans for discharge tomorrow. Family is aware does need assistance and plan is to consider this after discharge.
[2019-12-17] MEDS: Levothyroxine 25 MCG Tab PO SCH (06:40)
[2019-12-17] MEDS: Atenolol 25 MG Tab PO SCH (07:49)
[2019-12-17] MEDS: Furosemide 20 MG Tab PO SCH (07:51)
[2019-12-17] MEDS: Cholecalciferol (Vitamin D3) 25 MCG Tab PO SCH (07:51)
[2019-12-17 11:17] VITALS: BP 148/63; PULSE 68
--- NOTE | 2019-12-17 11:58 | PCM.DCSUM1 ---
Discharge Summary - Hospital Course Free Text/Narrative:: Alice is an 89 year old female who presented to the ER with complaints of chest discomfort. Patient had called for EMS during the night as she felt someone was trying to break in to her apartment. Reports that it is a big apartment complex with a lot of people "milling around". Once police arrived on the scene, she told the police she was having chest discomfort. Patient has a history of chest discomfort and cardiac disease. Admits having chest pain almost on a daily basis and had progressed throughout the day of arrival to ER. Had tenderness with palpation to her anterior chest with palpation per ER provider. Has a history of fibromyalgia which she feels contributes to her chest discomfort. Cardiac work up done in the ER was negative. Patient was essentially discharged to home but she had voiced concerns of fear of returning there. Police department had thoroughly checked her place and did not find anything out of the ordinary. Family was contacted and were unable to come at that time. Per her records, has a history of hallucinations. Family reports situations have been checked due to her fears but found them to be unfounded and has been ongoing for years. Admitted as vulnerable adult. Diagnosis: Stroke: No Modified Deven Scale: No Symptoms at All Modified Deven Scale Score: 0 - Discharge Data Discharge Date: 12/17/19 Discharge Disposition: Home, Self-Care 01 Condition: Stable - Referral to Home Health Primary Care Physician: Mary Marie NP - Discharge Diagnosis/Problem(s) (1) Hallucinations SNOMED Code(s): 7584026 ICD Code: R44.3 - HALLUCINATIONS, UNSPECIFIED Status: Acute Priority: High Current Visit: Yes - Patient Summary/Data Complications: none Hospital Course: Patient is up and around in room today. Good appetite. States is hoping to find someone to stay with her at her home at night in the event she would need assistance. She reports she has looked in to assisted living at [facility] but "need to be better at ambulating there to be independent". Would like to try it at home for another month with assistance at night. Admits her chest discomfort is stable at this point. No shortness of breath, nausea or vomiting. Family will take patient home at discharge and find assistance as needed. - Patient Instructions Diet: Usual Diet as Tolerated Activity: As Tolerated Other/Special Instructions: Follow up with PCP as needed - Discharge Plan *PRESCRIPTION DRUG MONITORING PROGRAM REVIEWED*: Not Applicable *COPY OF PRESCRIPTION DRUG MONITORING REPORT IN PATIENT [facility]: Not Applicable Home Medications: Home Meds Albuterol Sulfate [Albuterol Sulfate HFA] 2 puff IH QID PRN 09/08/13 [History] Cod Liver Oil 1 cap PO DAILY 09/08/13 [History] Furosemide [Lasix] 20 mg PO DAILY 09/08/13 [History] Nitroglycerin [IJP: Nitroglycerin] 0.4 mg SL ASDIRECTED PRN #30 tablet, sublingual 12/27/15 [Rx] Atenolol [Tenormin] 12.5 mg PO DAILY 05/25/17 [History] Cholecalciferol (Vitamin D3) [D3-2000] 2,000 unit PO DAILY 05/25/17 [History] Ubidecarenone [Co Q-10] 100 mg PO DAILY 05/25/17 [History] Olopatadine [Pataday 0.2% Ophth Soln] 1 drop OP DAILY PRN 07/12/17 [History] Levothyroxine Sodium [Synthroid] 25 mcg PO ACBREAKFAST 12/01/17 [History] Nystatin 1 applic TOP BID PRN 12/16/19 [History] Rivaroxaban [Xarelto] 20 mg PO DAILY 12/16/19 [History] Patient Handouts: Chest Wall Pain, [id number], Nonspecific Chest Pain, Adult Forms: ED Department Discharge - Discharge Summary/Plan Comment DC Time >30 min.: No - General Info Date of Service: 12/17/19 Admission Dx/Problem (Free Text: Hallucinations Functional Status: Reports: Pain Controlled, Tolerating Diet, Ambulating - Review of Systems General: Reports: Weakness, Fatigue, Malaise HEENT: Reports: No Symptoms Pulmonary: Reports: Pleuritic Chest Pain. Denies: Shortness of Breath, Cough Cardiovascular: Reports: Edema. Denies: Chest Pain, Lightheadedness Gastrointestinal: Denies: Abdominal Pain, Nausea, Vomiting Genitourinary: Reports: No Symptoms Musculoskeletal: Reports: No Symptoms Skin: Reports: No Symptoms Neurological: Reports: Weakness Psychiatric: Reports: No Symptoms - Patient Data Vitals - Most Recent: Last Vital Signs Temp 97.6 F 12/17/19 10:00 Pulse 68 12/17/19 10:00 Resp 16 12/17/19 10:00 BP 148/63 H 12/17/19 10:00 Pulse Ox 94 L 12/17/19 10:00 Weight - Most Recent: 208 lb I&O - Last 24 hours: Intake & Output 12/16/19 12/17/19 12/17/19 22:59 06:59 14:59 Intake Total 120 200 300 Output Total 400 600 Balance -280 -400 300 Med Orders - Current: Current Medications Atenolol (Tenormin) 12.5 mg PO DAILY [facility] Last Admin: 12/17/19 07:49 Dose: 12.5 mg Documented by: Cholecalciferol (Vitamin D3) 50 mcg PO DAILY [facility] Last Admin: 12/17/19 07:51 Dose: 50 mcg Documented by: Furosemide (Lasix) 20 mg PO DAILY [facility] Last Admin: 12/17/19 07:51 Dose: 20 mg Documented by: Levothyroxine Sodium (Levothyroxine) 25 mcg PO ACBREAKFAST [facility] Last Admin: 12/17/19 06:40 Dose: 25 mcg Documented by: Nitroglycerin (Nitrostat) 0.4 mg SL ASDIRECTED PRN PRN Reason: Chest Pain Rivaroxaban (Xarelto) 15 mg PO WITHDINNER [facility] Last Admin: 12/16/19 18:45 Dose: 15 mg Documented by: Discontinued Medications Non-Formulary Medication (Cod Liver Oil [Cod Liver Oil]) 1 cap PO DAILY [facility] Last Admin: 12/16/19 18:41 Dose: Not Given Documented by: Non-Formulary Medication (Nystatin [Nystatin]) 1 applic TOP BID PRN PRN Reason: Rash Non-Formulary Medication (Olopatadine [Pataday 0.2% Ophth Soln]) 1 drop OP DAILY PRN PRN Reason: Allergies Non-Formulary Medication (Ubidecarenone [Co Q-10]) 100 mg PO DAILY [facility] Last Admin: 12/16/19 18:41 Dose: Not Given Documented by: - Exam General: Reports: Alert, Oriented HEENT: Reports: Mucous Membr. Moist/Abrams Neck: Reports: Supple Lungs: Reports: Clear to Auscultation, Normal Respiratory Effort Cardiovascular: Reports: Regular Rate, Regular Rhythm GI/Abdominal Exam: Normal Bowel Sounds, Soft, Non-Tender Extremities: Normal Inspection, Pedal Edema (1+) Skin: Reports: Warm, Dry Neurological: Reports: No New Focal Deficit
== END 2019-12-17 12:25 | disposition home or self-care (01) ==
LOC: VM.ED 00:14 → VM.MS 02:56
PROVIDERS: ADMIT Nurse Practitioner; ATTEND Nurse Practitioner
DX: R07.2 Precordial pain (principal); R44.3 Hallucinations, unspecified; I10 Essential (primary) hypertension; J43.9 Emphysema, unspecified; E11.9 Type 2 diabetes mellitus without complications; K21.9 Gastro-esophageal reflux disease without esophagitis; Z79.899 Other long term (current) drug therapy; Z79.51 Long term (current) use of inhaled steroids; Z88.0 Allergy status to penicillin; Z88.8 Allergy status to other drugs, medicaments and biological substances; Z88.6 Allergy status to analgesic agent; Z91.011 Allergy to milk products; Z91.012 Allergy to eggs; Z86.79 Personal history of other diseases of the circulatory system
CPT/HCPCS: 36415; 71045; 80053; 84484; 85025; 85610; 93005; 99285; A9270; 99217; 99220; G0378

== ENCOUNTER 2019-12-20 20:38 | Emergency (ER) | payer MEDICARE, MEDICAID ==
--- NOTE | 2019-12-20 20:53 | EDM.PDOC ---
ED HPI GENERAL MEDICAL PROBLEM - General Stated Complaint: CHEST PAIN Time Seen by Provider: 12/20/19 20:53 Source of Information: Reports: Patient, EMS History Limitations: Reports: No Limitations - History of Present Illness INITIAL COMMENTS - FREE TEXT/NARRATIVE: This patient comes emergency department today with complaints of generalized pain and chest pain. This patient lives at home alone and constantly is being harassed by her neighbors with pounding on her doors people slamming her doors and phone calls that make her very anxious. She develops pain in her chest and pain throughout her body. This is something that happens on a daily basis multiple times throughout the day. This is been going on for months. She was recently admitted into the hospital for very similar concerns and only because there was no way to discharge her. Cording to EMS and nursing staff as well this patient lives at home alone and has been investigated with the police and social studies teacher and she is hallucinating or these instances or not happening. She has been in the senior living in the past due to her paranoia and hallucinations although she is not currently in there. She complains of this generalized pain throughout her body. She is very concerned and paranoid about everything that is going on around her. She states that she regularly refuses to take her medication because any of those meds can kill her which is what she was told by her report developer. No COVID concerns. No shortness of breath. No fever no chills. No abdominal pain nausea or vomiting. Just this generalized shooting pain throughout her body and in her chest. No hematuria dysuria or urinary frequency. No black or tarry stools. mid sternal chest Pain Score (Numeric/FACES): 6 - Related Data Allergies Allergy/AdvReac Type Severity Reaction Status Date / Time acetaminophen [From Tylenol] Allergy Other Verified 12/21/19 03:06 amoxicillin [Amoxicillin] Allergy Rash Verified 12/21/19 03:06 atorvastatin [From Lipitor] Allergy Cannot Verified 12/21/19 03:06 Remember egg Allergy Cough Verified 12/21/19 03:06 metoprolol Allergy Cannot Verified 12/21/19 03:06 Remember Penicillins Allergy Rash Verified 12/21/19 03:06 propoxyphene HCl Allergy Other Verified 12/21/19 03:06 [From Darvon] aspirin AdvReac Stomach Verified 12/21/19 03:06 Upset Dairy Products AdvReac Cough Verified 12/21/19 03:06 Home Meds: Home Meds Albuterol Sulfate [Albuterol Sulfate HFA] 2 puff IH QID PRN 09/08/13 [History] Cod Liver Oil 1 cap PO DAILY 09/08/13 [History] Furosemide [Lasix] 20 mg PO DAILY 09/08/13 [History] Nitroglycerin [IJP: Nitroglycerin] 0.4 mg SL ASDIRECTED PRN #30 tablet, sublingual 12/27/15 [Rx] Atenolol [Tenormin] 12.5 mg PO DAILY 05/25/17 [History] Cholecalciferol (Vitamin D3) [D3-2000] 2,000 unit PO DAILY 05/25/17 [History] Ubidecarenone [Co Q-10] 100 mg PO DAILY 05/25/17 [History] Olopatadine [Pataday 0.2% Ophth Soln] 1 drop OP DAILY PRN 07/12/17 [History] Levothyroxine Sodium [Synthroid] 25 mcg PO ACBREAKFAST 12/01/17 [History] Nystatin 1 applic TOP BID PRN 12/16/19 [History] Rivaroxaban [Xarelto] 20 mg PO DAILY 12/16/19 [History] LORazepam [Lorazepam] 0.5 mg PO DAILY PRN #6 tablet 12/20/19 [Rx] Past Medical History HEENT History: Reports: Cataract Cardiovascular History: Reports: Angina, Hypertension, Pacemaker, Syncope Respiratory History: Reports: Asthma, COPD, SOB, Other (See Below) Other Respiratory History: emphysema Gastrointestinal History: Reports: GERD Genitourinary History: Reports: Urinary Incontinence Musculoskeletal History: Reports: Arthritis, Fibromyalgia Neurological History: Reports: Vertigo Endocrine/Metabolic History: Reports: Diabetes, Type II Oncologic (Cancer) History: Reports: Cervix - Past Surgical History GI Surgical History: Reports: Appendectomy, Cholecystectomy Social & Family History - Caffeine Use Caffeine Use: Reports: Coffee ED ROS GENERAL - Review of Systems Review Of Systems: Comprehensive ROS is negative, except as noted in HPI. ED EXAM, GENERAL - Physical Exam Exam: See Below Free Text/Narrative:: Patient is very anxious and agitated upon arrival. She is modulating tearful and laughing. She is concerned about everything in the room that could possibly hurt her. He is very anxious agitated and concerned and is aware that the symptoms have been going on for quite some time she just cannot take them anymore. Exam Limited By: Other (Anxiety) General Appearance: Alert, WD/WN, Anxious (extremely) Eye Exam: Bilateral Eye: EOMI Ears: Normal External Exam, Normal TMs Nose: Normal Inspection Throat/Mouth: Normal Inspection Head: Atraumatic, Normocephalic Neck: Normal Inspection, Supple Respiratory/Chest: No Respiratory Distress, Lungs Clear, Normal Breath Sounds, No Accessory Muscle Use Cardiovascular: Normal Peripheral Pulses, Regular Rate, Rhythm Peripheral Pulses: 2+: Radial (L), Radial (R), Posterior Tibial (L), Posterior Tibial (R), Dorsalis Pedis (L), Dorsalis Pedis (R) GI/Abdominal: Normal Bowel Sounds, Soft, Non-Tender (Female) Exam: Deferred Rectal (Female) Exam: Deferred Back Exam: Normal Inspection, Full Range of Motion Extremities: Normal Inspection, Pedal Edema (1+ bilaterally) Neurological: Alert, Oriented, CN II-XII Intact, Normal Cognition, No Motor/Sensory Deficits Psychiatric: Anxious Skin Exam: Warm, Dry, Intact, Normal Color, No Rash EKG INTERPRETATION EKG Date: 12/20/19 Time: 20:32 Rhythm: Other (Paced rhythm) Rate (Beats/Min): 72 Comparison: No Change Course - Vital Signs Last Recorded V/S: Last Vital Signs Temp 99.2 F 12/20/19 20:38 Pulse 72 12/20/19 20:38 Resp 18 12/20/19 20:38 BP 141/65 H 12/20/19 20:38 Pulse Ox 95 12/20/19 20:38 - Orders/Labs/Meds Labs: Laboratory Tests 12/20/19 12/20/19 12/20/19 Range/Units 21:17 21:17 22:00 WBC 9.0 (4.0-10.0) x10^3/uL RBC 3.74 L (4.00-5.50) x10^6/uL Hgb 12.1 (12.0-16.0) g/dL Hct 35.6 (33.0-47.0) % MCV 95.2 H (78.0-93.0) fL MCH 32.4 H (26.0-32.0) pg MCHC 34.0 (32.0-36.0) g/dL RDW Coeff of Ghada 12.8 (10.0-15.0) % Plt Count 321 (130-400) x10^3/uL Add Manual Diff Yes Neutrophils % (Manual) 58 (50-80) % Band Neutrophils % 3 (0-6) % Lymphocytes % (Manual) 22 L (25-50) % Monocytes % (Manual) 15 H (2-11) % Eosinophils % (Manual) 1 (0-4) % Metamyelocytes % 1 H (0) % Platelet Estimate Adequate Sodium 137 (136-145) mmol/L Potassium 3.7 (3.5-5.1) mmol/L Chloride 99 (98-107) mmol/L Carbon Dioxide 30 (21-32) mmol/L Anion Gap 11.7 (10-20) mmol/L BUN 13 (7-18) mg/dL Creatinine 0.9 (0.55-1.02) mg/dL Est Cr Clr Drug Dosing TNP Estimated GFR (MDRD) 59 Glucose 172 H (74-106) mg/dL Calcium 8.3 L (8.5-10.1) mg/dL Corrected Calcium 8.78 (8.5-10.1) mg/dL Total Bilirubin 0.2 (0.2-1.0) mg/dL AST 15 (15-37) U/L ALT 18 (14-59) U/L Alkaline Phosphatase 57 (46-116) U/L Troponin I < 0.017 (<=0.056) ng/mL Total Protein 6.9 (6.4-8.2) g/dL Albumin 3.4 (3.4-5.0) g/dL Globulin 3.5 Albumin/Globulin Ratio 0.97 Urine Color Light yellow (YELLOW) Urine Appearance Slightly cloudy H (CLEAR) Urine pH 5.5 (5.0-8.0) Ur Specific Emerson 1.020 Urine Protein Negative (NEGATIVE) mg/dL Urine Glucose (UA) Negative (NEGATIVE) mg/dL Urine Ketones Negative (NEGATIVE) mg/dL Urine Occult Blood Negative (NEGATIVE) Urine Nitrite Negative (NEGATIVE) Urine Bilirubin Negative (NEGATIVE) Urine Urobilinogen 0.2 (0.2) EU/dL Ur Leukocyte Esterase Trace H (NEGATIVE) Meds: Medications Discontinued Medications Generic Name Dose Route Start Last Admin Trade Name Jaquelin PRSanty Reason Stop Dose Admin Lorazepam 0.5 mg 12/20/19 20:56 12/20/19 21:05 Ativan IVPUSH 12/20/19 20:57 0.5 mg STAT ONE Administration - Re-Assessments/Exams Free Text/Narrative Re-Assessment/Exam: 12/20/19 21:08 EKG done by ambulance is no changes No ST elevation or depression. Lorazepam 0.5mg IVP. 12/20/19 21:13 I did review the patient's chart after her last hospital admission and I did verify that the police and social studies teacher are aware of this patient's concern and is been documented and more concerning that this is hallucination or paranoia that the patient is exhibiting. 12/20/19 21:46 After the ativan her CP resolved her anxiety resolved and she was just left with her chronic pain all over throughout her body. The patient was able to ambulate to the bathroom with a walker with some assistance. Eventually she did not complain of her generalized pain throughout her body that she had complained about when she came to the emergency department. She was no longer anxious or agitated. She was actually very pleasant and friendly and easy to visit with once her panic attack was under control. She would like to be admitted to the hospital because she cannot stay at home because of her concerns. She would also like to stay at the hospital because she does not feel like she should live at home by herself because of the people in her apartment making noise and it is difficult for her to live there. I explained her multiple times that we can admit people into the hospital just because they feel that they need to be. Is clearly a panic attack which has been documented in the past and some concerns for paranoia and/or hallucinations. She is not a threat to herself or others at this time. There is no acute life-threatening or emergent or urgent concern that requires hospitalization. We made multiple attempts to contact her family which they did not answer which is not unlike the last time she showed up in the ER and had to be placed on observation because they were unable to get her home. Eventually we were able to get a hold of a ride service here in [facility] that was very gracious enough in the middle the night to come to the ER and help this female get back to her house. I did give her a short course of lorazepam to help with her acute panic attacks. She really needs to see her primary care provider to continue to manage her recurrent panic attacks at home. Consideration for either senior living or assisted living as the family is shown to be of little support over the past few visits in the emergency department I think is of high priority. Defer this decision to the primary care provider. She was discharged home she was comfortable with this plan and her questions are answered. 12/21/19 13:53 Departure - Departure Time of Disposition: 23:28 Disposition: Home, Self-Care 01 Clinical Impression: Panic attack, Chest pain, non-cardiac - Discharge Information Prescriptions: LORazepam [Lorazepam] 0.5 mg PO DAILY PRN #6 tablet PRN Reason: Anxiety Instructions: Panic Attack, [id number], Nonspecific Chest Pain, Adult, [id number] Referrals: Yahaira Gentile MD [Primary Care Provider] - Forms: ED Department Discharge Additional Instructions: Lorazepam 1 tablet daily as needed for acute episodes of panic attacks. Take only when you have a panic attack. Rx was sent electronically to [facility]. Continue with your previous therapies. See your PCP on wednesday for recheck and remote computer terminal operator planning for your recurrent panic attacks. Return to the ED if new or worsening symptoms. - Assessment/Plan Assessment:: Panic attack. Noncardiac chest pain, from her panic attacks. Plan: Lorazepam 1 tablet daily as needed for acute episodes of panic attacks. Take only when you have a panic attack. Continue with your previous therapies. See your PCP on wednesday for recheck and remote computer terminal operator planning for your recurrent panic attacks. Return to the ED if new or worsening symptoms.
[2019-12-20] MEDS ORDERED: LORazepam 2 MG/ML SDV IVPUSH ONE (20:56)
[2019-12-20 21:57] LABS: CHLORIDE,CL 99 mmol/L (98-107); SODIUM,NA 137 mmol/L (136-145)
[2019-12-20 21:59] LABS: ANION GAP 11.7 mmol/L (10-20)
[2019-12-21 03:06] VITALS: BP 141/65; PULSE 72
== END 2019-12-20 23:55 | disposition home or self-care (01) ==
LOC: VM.ED 20:38
DX: F41.0 Panic disorder [episodic paroxysmal anxiety] (principal); R07.89 Other chest pain; I10 Essential (primary) hypertension; J44.9 Chronic obstructive pulmonary disease, unspecified; E11.9 Type 2 diabetes mellitus without complications; M19.90 Unspecified osteoarthritis, unspecified site; Z88.1 Allergy status to other antibiotic agents; Z88.8 Allergy status to other drugs, medicaments and biological substances; Z88.0 Allergy status to penicillin; Z88.6 Allergy status to analgesic agent; Z91.012 Allergy to eggs; Z91.011 Allergy to milk products; Z79.01 Long term (current) use of anticoagulants; Z79.899 Other long term (current) drug therapy
CPT/HCPCS: 36415; 80053; 81003; 84484; 85025; 93010; 96374; 99284-GF; 99285-25; J2060

== ENCOUNTER 2020-05-23 17:23 | Observation (INO) | payer MEDICARE, MEDICAID ==
[2020-05-23] MEDS ORDERED: Sodium Chloride 0.9% 10 ML Syringe FLUSH PRN (17:43)
[2020-05-23 18:17] LABS: CHLORIDE,CL 95 mmol/L (98-107); SODIUM,NA 131 mmol/L (136-145)
[2020-05-23 18:25] LABS: ANION GAP 12.1 mmol/L (10-20)
--- NOTE | 2020-05-23 18:29 | EDM.PDOC ---
ED HPI GENERAL MEDICAL PROBLEM - General Chief Complaint: General Stated Complaint: SOB CHEST AND BACK PAIN Time Seen by Provider: 05/23/20 17:30 Source of Information: Reports: Patient History Limitations: Reports: No Limitations - History of Present Illness INITIAL COMMENTS - FREE TEXT/NARRATIVE: Pt. presents to ER with complaints of acute on chronic shortness of breath and myalgias. She states that the discomfort got worse starting this afternoon about 3 PM. Pt. denies any recent trauma. Denies any event that happened to cause the discomfort to get worse.Denies any fever or chills. Pt. states that she has a longstanding history of chronic pain syndrome but states that it is worse today. She has chronic back pain with radiculopathy, extremity pain, and states that she has a history of peripheral edema that she states us not any worse than normal. She states that she always has a cough and that it is not any worse than normal. It is non-productive. Pt. denies any dysuria. No abdominal discomfort, nausea, vomiting, or diarrhea. Pt. has a history of dementia and previously had been in the half-way several years ago, but now lives on her own in a ground floor apartment. She does all of her own ADLs and gets meals on wheels. Pt. states that her daughter helps her with housework, but she does a majority of her domestic work on her own. Today, EMS was summoned to bring the patient to ER. They state that she was hemodynamically stable and then became tachycardic. She was placed on the nuclear monitoring technician, which showed a wide complex tachycardia in the 130-140 range. This resolved rapidly without intervention. AICD did not appear to discharge. She has a history of CAD and has a pacemaker due to complete heart block. She also has a history of paroxysmal atrial fib and is on xaralto and atenolol. Onset: Today Onset Date: 05/23/20 Location: Reports: Chest, Back, Upper Extremity, Left, Upper Extremity, Right, Lower Extremity, Left, Lower Extremity, Right, Generalized Quality: Reports: Ache Severity: Severe - Related Data Allergies Allergy/AdvReac Type Severity Reaction Status Date / Time acetaminophen [From Tylenol] Allergy Other Verified 05/23/20 17:49 amoxicillin [Amoxicillin] Allergy Rash Verified 05/23/20 17:49 atorvastatin [From Lipitor] Allergy Cannot Verified 05/23/20 17:49 Remember egg Allergy Cough Verified 05/23/20 17:49 metoprolol Allergy Cannot Verified 05/23/20 17:49 Remember Penicillins Allergy Rash Verified 05/23/20 17:49 propoxyphene HCl Allergy Other Verified 05/23/20 17:49 [From Darvon] aspirin AdvReac Stomach Verified 05/23/20 17:49 Upset Dairy Products AdvReac Cough Verified 05/23/20 17:49 Home Meds: Home Meds Albuterol Sulfate [Albuterol Sulfate HFA] 2 puff IH QID PRN 09/08/13 [History] Cod Liver Oil 1 cap PO DAILY 09/08/13 [History] Furosemide [Lasix] 20 mg PO DAILY 09/08/13 [History] Nitroglycerin [IJP: Nitroglycerin] 0.4 mg SL ASDIRECTED PRN #30 tablet, subling ual 12/27/15 [Rx] Atenolol [Tenormin] 12.5 mg PO DAILY 05/25/17 [History] Cholecalciferol (Vitamin D3) [D3-2000] 2,000 unit PO DAILY 05/25/17 [History] Ubidecarenone [Co Q-10] 100 mg PO DAILY 05/25/17 [History] Olopatadine [Pataday 0.2% Ophth Soln] 1 drop OP DAILY PRN 07/12/17 [History] Levothyroxine Sodium [Synthroid] 25 mcg PO ACBREAKFAST 12/01/17 [History] Nystatin 1 applic TOP BID PRN 12/16/19 [History] Rivaroxaban [Xarelto] 20 mg PO DAILY 12/16/19 [History] LORazepam [Lorazepam] 0.5 mg PO DAILY PRN #6 tablet 12/20/19 [Rx] Past Medical History HEENT History: Reports: Cataract Cardiovascular History: Reports: Angina, Hypertension, Pacemaker, Syncope Respiratory History: Reports: Asthma, COPD, SOB, Other (See Below) Other Respiratory History: emphysema Gastrointestinal History: Reports: GERD Genitourinary History: Reports: Urinary Incontinence Musculoskeletal History: Reports: Arthritis, Fibromyalgia Neurological History: Reports: Vertigo Endocrine/Metabolic History: Reports: Diabetes, Type II Oncologic (Cancer) History: Reports: Cervix - Past Surgical History GI Surgical History: Reports: Appendectomy, Cholecystectomy Social & Family History - Caffeine Use Caffeine Use: Reports: Coffee ED ROS GENERAL - Review of Systems Review Of Systems: See Below Constitutional: Reports: No Symptoms, Fatigue. Denies: Fever, Chills HEENT: Reports: No Symptoms Respiratory: Reports: Shortness of Breath, Pleuritic Chest Pain Cardiovascular: Reports: Chest Pain, Edema (chronic), Other (see HPI). Denies: Palpitations Endocrine: Reports: No Symptoms GI/Abdominal: Reports: No Symptoms : Reports: No Symptoms Musculoskeletal: Reports: Back Pain, Leg Pain, Joint Pain, Muscle Pain Skin: Reports: No Symptoms Neurological: Reports: No Symptoms Psychiatric: Reports: No Symptoms Hematologic/Lymphatic: Reports: No Symptoms Immunologic: Reports: No Symptoms ED EXAM, GENERAL - Physical Exam Exam: See Below Exam Limited By: No Limitations General Appearance: Alert, WD/WN, No Apparent Distress Throat/Mouth: Normal Oropharynx (oral mucosa is moist), Normal Voice, No Airway Compromise Head: Atraumatic, Normocephalic Neck: Normal Inspection, Supple, Non-Tender Respiratory/Chest: No Respiratory Distress, Lungs Clear, Normal Breath Sounds, No Accessory Muscle Use, Chest Non-Tender Cardiovascular: Regular Rate, Rhythm, Other (see HPI. Peripheral edema, not worse than normal.) Peripheral Pulses: 4+: Radial (R) GI/Abdominal: Soft, Non-Tender, No Organomegaly, No Distention, No Mass (Female) Exam: Other (poor hygiene/presence of significant erythema to amos area consistent with cutaneous candidiasis/exposure to urine.) Rectal (Female) Exam: Deferred Back Exam: Normal Inspection, Decreased Range of Motion Extremities: Normal Inspection, Normal Range of Motion, No Pedal Edema, Normal Capillary Refill Neurological: Alert, Oriented, CN II-XII Intact, Normal Cognition, Normal Gait, Normal Reflexes, No Motor/Sensory Deficits Psychiatric: Normal Affect, Normal Mood Skin Exam: Warm, Dry, Intact, Normal Color, No Rash Lymphatic: No Adenopathy #1 Interpretation EKG Interpretation Comments: Paced rhythm rate of 72 Course - Orders/Labs/Meds Orders: Active Orders 24 hr Category Date Time Status Patient Status [ADT] Routine ADT 05/23/20 18:57 Ordered EKG Documentation Completion [RC] STAT Care 05/23/20 17:44 Active Chest 1V Frontal [CR] Stat Exams 05/23/20 18:48 Ordered CULTURE BLOOD [BC] Stat Lab 05/23/20 18:12 Received CULTURE BLOOD [BC] Stat Lab 05/23/20 18:20 Received Sodium Chloride 0.9% [Saline Flush] Med 05/23/20 17:43 Active 10 ml FLUSH ASDIRECTED PRN Blood Culture x2 Reflex Set [OM.PC] Stat Oth 05/23/20 17:43 Ordered Peripheral IV Insertion Adult [OM.PC] Routine Oth 05/23/20 17:43 Ordered Medication Orders Sodium Chloride (Saline Flush) 10 ml FLUSH ASDIRECTED PRN PRN Reason: Keep Vein Open Labs: Laboratory Tests 05/23/20 05/23/20 05/23/20 Range/Units 17:35 17:35 17:35 WBC (4.0-10.0) x10^3/uL RBC (4.00-5.50) x10^6/uL Hgb (12.0-16.0) g/dL Hct (33.0-47.0) % MCV (78.0-93.0) fL MCH (26.0-32.0) pg MCHC (32.0-36.0) g/dL RDW Coeff of Ghada (10.0-15.0) % Plt Count (130-400) x10^3/uL Neut % (Auto) (50.0-80.0) % Lymph % (Auto) (25.0-50.0) % Bremer % (Auto) (2.0-11.0) % Eos % (Auto) (0.0-4.0) % Baso % (Auto) (0.2-1.2) % PT (9.5-12.3) SEC INR (2.0-3.5) APTT 32.3 (25.6-32.8) SEC Sodium 131 L (136-145) mmol/L Potassium 4.1 (3.5-5.1) mmol/L Chloride 95 L (98-107) mmol/L Carbon Dioxide 28 (21-32) mmol/L Anion Gap 12.1 (10-20) mmol/L BUN 12 (7-18) mg/dL Creatinine 0.8 (0.55-1.02) mg/dL Est Cr Clr Drug Dosing TNP Estimated GFR (MDRD) > 60 Glucose 134 H (74-106) mg/dL Lactic Acid 0.9 (0.4-2.0) mmol/L Calcium 8.9 (8.5-10.1) mg/dL Corrected Calcium 9.22 (8.5-10.1) mg/dL Magnesium 1.9 (1.8-2.4) mg/dL Total Bilirubin 0.4 (0.2-1.0) mg/dL AST 15 (15-37) U/L ALT 28 (14-59) U/L Alkaline Phosphatase 57 (46-116) U/L Troponin I < 0.017 (<=0.056) ng/mL C-Reactive Protein 0.9 (<=0.9) mg/dL NT-Pro-B Natriuret Pep 206 (<=450) pg/mL Total Protein 7.3 (6.4-8.2) g/dL Albumin 3.6 (3.4-5.0) g/dL Globulin 3.7 Albumin/Globulin Ratio 0.97 Urine Color (YELLOW) Urine Appearance (CLEAR) Urine pH (5.0-8.0) Ur Specific [place] Urine Protein (NEGATIVE) mg/dL Urine Glucose (UA) (NEGATIVE) mg/dL Urine Ketones (NEGATIVE) mg/dL Urine Occult Blood (NEGATIVE) Urine Nitrite (NEGATIVE) Urine Bilirubin (NEGATIVE) Urine Urobilinogen (0.2) EU/dL Ur Leukocyte Esterase (NEGATIVE) SARS CoV-2 RNA Rapid DAMION (NEGATIVE) 05/23/20 05/23/20 05/23/20 Range/Units 17:35 17:35 17:36 WBC 8.9 (4.0-10.0) x10^3/uL RBC 4.02 (4.00-5.50) x10^6/uL Hgb 12.5 (12.0-16.0) g/dL Hct 37.7 (33.0-47.0) % MCV 93.8 H (78.0-93.0) fL MCH 31.1 (26.0-32.0) pg MCHC 33.2 (32.0-36.0) g/dL RDW Coeff of Ghada 12.6 (10.0-15.0) % Plt Count 309 (130-400) x10^3/uL Neut % (Auto) 66.1 (50.0-80.0) % Lymph % (Auto) 17.4 L (25.0-50.0) % Bremer % (Auto) 14.9 H (2.0-11.0) % Eos % (Auto) 1.2 (0.0-4.0) % Baso % (Auto) 0.4 (0.2-1.2) % PT 11.4 (9.5-12.3) SEC INR 1.1 L (2.0-3.5) APTT (25.6-32.8) SEC Sodium (136-145) mmol/L Potassium (3.5-5.1) mmol/L Chloride (98-107) mmol/L Carbon Dioxide (21-32) mmol/L Anion Gap (10-20) mmol/L BUN (7-18) mg/dL Creatinine (0.55-1.02) mg/dL Est Cr Clr Drug Dosing Estimated GFR (MDRD) Glucose (74-106) mg/dL Lactic Acid (0.4-2.0) mmol/L Calcium (8.5-10.1) mg/dL Corrected Calcium (8.5-10.1) mg/dL Magnesium (1.8-2.4) mg/dL Total Bilirubin (0.2-1.0) mg/dL AST (15-37) U/L ALT (14-59) U/L Alkaline Phosphatase (46-116) U/L Troponin I (<=0.056) ng/mL C-Reactive Protein (<=0.9) mg/dL NT-Pro-B Natriuret Pep (<=450) pg/mL Total Protein (6.4-8.2) g/dL Albumin (3.4-5.0) g/dL Globulin Albumin/Globulin Ratio Urine Color (YELLOW) Urine Appearance (CLEAR) Urine pH (5.0-8.0) Ur Specific [place] Urine Protein (NEGATIVE) mg/dL Urine Glucose (UA) (NEGATIVE) mg/dL Urine Ketones (NEGATIVE) mg/dL Urine Occult Blood (NEGATIVE) Urine Nitrite (NEGATIVE) Urine Bilirubin (NEGATIVE) Urine Urobilinogen (0.2) EU/dL Ur Leukocyte Esterase (NEGATIVE) SARS CoV-2 RNA Rapid DAMION Negative (NEGATIVE) 05/23/20 Range/Units 18:40 WBC (4.0-10.0) x10^3/uL RBC (4.00-5.50) x10^6/uL Hgb (12.0-16.0) g/dL Hct (33.0-47.0) % MCV (78.0-93.0) fL MCH (26.0-32.0) pg MCHC (32.0-36.0) g/dL RDW Coeff of Ghada (10.0-15.0) % Plt Count (130-400) x10^3/uL Neut % (Auto) (50.0-80.0) % Lymph % (Auto) (25.0-50.0) % Bremer % (Auto) (2.0-11.0) % Eos % (Auto) (0.0-4.0) % Baso % (Auto) (0.2-1.2) % PT (9.5-12.3) SEC INR (2.0-3.5) APTT (25.6-32.8) SEC Sodium (136-145) mmol/L Potassium (3.5-5.1) mmol/L Chloride (98-107) mmol/L Carbon Dioxide (21-32) mmol/L Anion Gap (10-20) mmol/L BUN (7-18) mg/dL Creatinine (0.55-1.02) mg/dL Est Cr Clr Drug Dosing Estimated GFR (MDRD) Glucose (74-106) mg/dL Lactic Acid (0.4-2.0) mmol/L Calcium (8.5-10.1) mg/dL Corrected Calcium (8.5-10.1) mg/dL Magnesium (1.8-2.4) mg/dL Total Bilirubin (0.2-1.0) mg/dL AST (15-37) U/L ALT (14-59) U/L Alkaline Phosphatase (46-116) U/L Troponin I (<=0.056) ng/mL C-Reactive Protein (<=0.9) mg/dL NT-Pro-B Natriuret Pep (<=450) pg/mL Total Protein (6.4-8.2) g/dL Albumin (3.4-5.0) g/dL Globulin Albumin/Globulin Ratio Urine Color Yellow (YELLOW) Urine Appearance Clear (CLEAR) Urine pH 6.0 (5.0-8.0) Ur Specific [place] 1.020 Urine Protein Negative (NEGATIVE) mg/dL Urine Glucose (UA) Negative (NEGATIVE) mg/dL Urine Ketones Negative (NEGATIVE) mg/dL Urine Occult Blood Negative (NEGATIVE) Urine Nitrite Negative (NEGATIVE) Urine Bilirubin Negative (NEGATIVE) Urine Urobilinogen 0.2 (0.2) EU/dL Ur Leukocyte Esterase Negative (NEGATIVE) SARS CoV-2 RNA Rapid DAMION (NEGATIVE) Meds: Medications Generic Name Dose Route Start Last Admin Trade Name Freq PRN Reason Stop Dose Admin Sodium Chloride 10 ml 05/23/20 17:43 Saline Flush FLUSH ASDIRECTED PRN Keep Vein Open Departure - Departure Time of Disposition: 19:52 Disposition: Refer to Observation Clinical Impression: Shortness of breath - Discharge Information Referrals: Yahaira Gentile MD [Primary Care Provider] - Forms: ED Department Discharge - Problem List Review Problem List Initiated/Reviewed/Updated: Yes - My Orders Last 24 Hours: My Active Orders 05/23/20 17:43 Sodium Chloride 0.9% [Saline Flush] 10 ml FLUSH ASDIRECTED PRN Blood Culture x2 Reflex Set [OM.PC] Stat Peripheral IV Insertion Adult [OM.PC] Routine 05/23/20 17:44 EKG Documentation Completion [RC] STAT 05/23/20 18:12 CULTURE BLOOD [BC] Stat 05/23/20 18:20 CULTURE BLOOD [BC] Stat 05/23/20 18:48 Chest 1V Frontal [CR] Stat 05/23/20 18:57 Patient Status [ADT] Routine - Assessment/Plan Last 24 Hours: My Active Orders 05/23/20 17:43 Sodium Chloride 0.9% [Saline Flush] 10 ml FLUSH ASDIRECTED PRN Blood Culture x2 Reflex Set [OM.PC] Stat Peripheral IV Insertion Adult [OM.PC] Routine 05/23/20 17:44 EKG Documentation Completion [RC] STAT 05/23/20 18:12 CULTURE BLOOD [BC] Stat 05/23/20 18:20 CULTURE BLOOD [BC] Stat 05/23/20 18:48 Chest 1V Frontal [CR] Stat 05/23/20 18:57 Patient Status [ADT] Routine Plan: Pt. will be admitted observation. Attempting to get the patient's [employer] device from home to interrogate her pacemaker. Attempted to use our device in ER, but the battery light is flashing and it does not appear to be working right. We will allow the patient to use her own device, since she uses the device at home frequently. She is a code 2. She is quite unkempt and she has significant erythema to her amos area. I am concerned that she is not able to care for herself. She states that daughter helps her bathe. She will be given a bath in the AM. Will trend troponin and EKG. Telemetry. Anticipate discharge in AM.
--- NOTE | 2020-05-23 20:52 | CR ---
[id number] RAD/RAD Chest PA or AP 1V EXAM: FRONTAL CHEST INDICATION: SOB COMPARISON: December 16, 2019. DISCUSSION: Stable mild elevation of the right hemidiaphragm. Stable mild cardiomegaly without evidence of edema. Linear scarring or atelectasis in the lung bases. Left subclavian approach pacemaker leads RA and RV. Next arthritis in both shoulders. IMPRESSION: 1. No acute findings. John Henry MD 05/23/202050 Thank you for allowing us to participate in the care of your patient.
[2020-05-23] MEDS ORDERED: OLOPATADINE EYEBOTH PRN (21:57)
[2020-05-23] MEDS ORDERED: Albuterol 0.083% 2.5 MG/3 ML Neb Soln NEB PRN (22:26)
[2020-05-23] MEDS ORDERED: Rivaroxaban 10 MG Tab PO SCH (22:30)
[2020-05-24] MEDS ORDERED: Acetaminophen/HYDROcodone 325-5 MG Tab PO PRN (01:51)
[2020-05-24] MEDS ORDERED: Levothyroxine 25 MCG Tab PO SCH (07:00)
[2020-05-24] MEDS ORDERED: Cholecalciferol (Vitamin D3) 25 MCG Tab PO SCH (08:00)
[2020-05-24] MEDS ORDERED: Ubidecarenone [Co Q-10] 100 MG PO SCH (08:00)
[2020-05-24] MEDS ORDERED: Furosemide 20 MG Tab PO SCH (08:00)
[2020-05-24] MEDS ORDERED: Atenolol 25 MG Tab PO SCH (08:00)
[2020-05-24] MEDS ORDERED: Nystatin Crm 30 GM Tube TOP SCH (08:00)
[2020-05-24 10:33] VITALS: BP 136/67; PULSE 64
--- NOTE | 2020-05-24 13:42 | PCM.DCSUM1 ---
Discharge Summary - Hospital Course HPI Initial Comments: Pt. presents to ER with complaints of acute on chronic shortness of breath and myalgias. She states that the discomfort got worse starting this afternoon about 3 PM. Pt. denies any recent trauma. Denies any event that happened to cause the discomfort to get worse.Denies any fever or chills. Pt. states that she has a longstanding history of chronic pain syndrome but states that it is worse today. She has chronic back pain with radiculopathy, extremity pain, and states that she has a history of peripheral edema that she states us not any worse than normal. She states that she always has a cough and that it is not any worse than normal. It is non-productive. Pt. denies any dysuria. No abdominal discomfort, nausea, vomiting, or diarrhea. Pt. has a history of dementia and previously had been in the prison several years ago, but now lives on her own in a ground floor apartment. She does all of her own ADLs and gets meals on wheels. Pt. states that her daughter helps her with housework, but she does a majority of her domestic work on her own. Today, EMS was summoned to bring the patient to ER. They state that she was hemodynamically stable and then became tachycardic. She was placed on the shelter monitor, which showed a wide complex tachycardia in the 130-140 range. This resolved rapidly without intervention. AICD did not appear to discharge. She has a history of CAD and has a pacemaker due to complete heart block. She also has a history of paroxysmal atrial fib and is on xaralto and atenolol. Brief History: This patient was admitted under observation by Kirill Douglas PA-C and I assumed care of the patient the next morning. Diagnosis: Stroke: No - Discharge Data Discharge Date: 05/24/20 Discharge Disposition: Home, Self-Care 01 Condition: Good - Referral to Home Health Date of Face to Face Encounter: 05/24/20 Reason for Homebound Status: This patient is requiring quite a bit of assistance at home. She was evaluated by physical therapy today and felt comfortable to be at home but she needs assistance with daily activities of living. She needs assistance with bathing and home care which was documented in with the concerns of her hygiene here in the hospital. She will be evaluated by home health with assistance and this is covered under psychotherapist social worker consult today please see that note. Primary Care Physician: Yahaira Gentile MD - Discharge Diagnosis/Problem(s) (1) Candidiasis of perineum SNOMED Code(s): 774028027 ICD Code: B37.49 - OTHER UROGENITAL CANDIDIASIS Status: Acute (2) Acute exacerbation of chronic low back pain SNOMED Code(s): 941254471 ICD Code: M54.5 - LOW BACK PAIN; G89.29 - OTHER CHRONIC PAIN Status: Acute (3) Shortness of breath SNOMED Code(s): 850587605 ICD Code: R06.02 - SHORTNESS OF BREATH Status: Acute (4) Poor personal hygiene SNOMED Code(s): 281760065 ICD Code: R46.0 - VERY LOW LEVEL OF PERSONAL HYGIENE Status: Acute - Patient Summary/Data Consults: Consultations 05/23/20 21:55 Consult to Physical Therapy [PT Evaluation and Treatment] [CONS] Routine 05/23/20 21:56 Consult to Case Management/Embedded Linux Developer [CONS] Routine Hospital Course: The patient was admitted through the emergency department under observation for concerns of shortness of breath poor hygiene acute on chronic lower back pain with left leg radiculopathy as well as perineal candidiasis. She had her troponin trended throughout the night that was negative. She had no more palpitations or shortness of breath throughout the night. She rested quite comfortably most of the night and really did not have any complaints. We did interrogate her pacemaker which shows that she had a an episode of about 3 hours of atrial fibrillation with a heart rate not extending over 110 bpm early childhood educator aide the day prior as well as a short run in the evening which most likely caused her shortness of breath. She had no ventricular ectopy with it. Her laboratory evaluation has been unremarkable. She was evaluated by psychotherapist social worker here in the hospital with concerns of needing more assistance at home. She clearly needs more assistance with activities of daily living as she currently has a rather impressive perineal candidiasis infection as well as just general poor hygiene. She will need assistance at home with bathing and ADLs as she clearly cannot do them on her own. She does not meet criteria to be in the prison at this time. She was evaluated by physical therapy and felt to be functionally capable of being at home with assistance of a walker. Not have any radicular chronic pain and she is comfortable with no changes in management at this time and does have a couple appointments upcoming with physical therapy to do some ultrasound management of her chronic low back pain with left leg radiculopathy. We will discharge her home starting her on some nystatin and home health will follow up with her on Wednesday. She is comfortable with this plan and her questions are answered. Greater than 30 minutes of time was spent on disposition for this patient. - Patient Instructions Diet: Regular Diet as Tolerated Other/Special Instructions: Continue with your previous medications. Home health will be with you on Wednesday to assist with your activities of daily living's. Make sure that you are bathing well. Apply the nystatin twice daily until resolution of the rash in the perineal region. Make sure that you are using your walker on a regular basis so that you do not fall. Make position changes slowly. Follow-up with physical therapy as previously discussed with yourself for your chronic pain in your leg. Recheck with your primary care provider middle of next week - Discharge Plan *PRESCRIPTION DRUG MONITORING PROGRAM REVIEWED*: Not Applicable *COPY OF PRESCRIPTION DRUG MONITORING REPORT IN PATIENT [facility]: Not Applicable Prescriptions/Med Rec: Nystatin [Nystatin Crm] 0 gm TOP BID #1 tube Home Medications: Home Meds Albuterol Sulfate [Albuterol Sulfate HFA] 2 puff IH QID PRN 09/08/13 [History] Cod Liver Oil 1 cap PO DAILY 09/08/13 [History] Furosemide [Lasix] 20 mg PO DAILY 09/08/13 [History] Nitroglycerin [IJP: Nitroglycerin] 0.4 mg SL ASDIRECTED PRN #30 tablet, sublingual 12/27/15 [Rx] Atenolol [Tenormin] 12.5 mg PO DAILY 05/25/17 [History] Cholecalciferol (Vitamin D3) [D3-2000] 2,000 unit PO DAILY 05/25/17 [History] Ubidecarenone [Co Q-10] 100 mg PO DAILY 05/25/17 [History] Olopatadine [Pataday 0.2% Ophth Soln] 1 drop OP DAILY PRN 07/12/17 [History] Levothyroxine Sodium [Synthroid] 25 mcg PO ACBREAKFAST 12/01/17 [History] Rivaroxaban [Xarelto] 20 mg PO DAILY 12/16/19 [History] Nystatin [Nystatin Crm] 0 gm TOP BID #1 tube 05/24/20 [Rx] atenoloL [Tenormin] 12.5 mg PO DAILY tablet 05/24/20 [Rx] Patient Handouts: Chronic Pain, Adult Forms: ED Department Discharge Referrals: Yahaira Gentile MD [Primary Care Provider] - - Discharge Summary/Plan Comment DC Time >30 min.: Yes - General Info Date of Service: 05/24/20 Admission Dx/Problem (Free Text: SOB Poor hygiene chronic low back pain. perineal candidiasis. Subjective Update: The patient has rested well throughout the night. She has had no shortness of breath she has had no chest pain weakness dizziness lightheadedness. She has no abdominal pain nausea or vomiting. She has been able to get up and go to the bathroom a couple of times with assistance and she feels much more steady. She worked with the physical therapy today and feels very steady with ambulation. She has not required anything for pain for her recurrent chronic lower back pain that radiates down her left leg. She has had a good appetite. She is eating normally. No constipation. She feels quite a bit better and would like to go home. She has not had any racing heart sensation. Functional Status: Reports: Pain Controlled - Patient Data Vitals - Most Recent: Last Vital Signs Temp 98 F 05/24/20 10:00 Pulse 64 05/24/20 10:00 Resp 18 05/24/20 10:00 BP 136/67 05/24/20 10:00 Pulse Ox 96 05/24/20 10:00 Weight - Most Recent: 214 lb I&O - Last 24 hours: Intake & Output 05/23/20 05/24/20 05/24/20 22:59 06:59 14:59 Intake Total 50 240 Balance 50 240 Lab Results - Last 24 hrs: Laboratory Results - last 24 hr 05/23/20 05/23/20 05/23/20 Range/Units 17:35 17:35 17:35 WBC (4.0-10.0) x10^3/uL RBC (4.00-5.50) x10^6/uL Hgb (12.0-16.0) g/dL Hct (33.0-47.0) % MCV (78.0-93.0) fL MCH (26.0-32.0) pg MCHC (32.0-36.0) g/dL RDW Coeff of Ghada (10.0-15.0) % Plt Count (130-400) x10^3/uL Neut % (Auto) (50.0-80.0) % Lymph % (Auto) (25.0-50.0) % [place] % (Auto) (2.0-11.0) % Eos % (Auto) (0.0-4.0) % Baso % (Auto) (0.2-1.2) % PT (9.5-12.3) SEC INR (2.0-3.5) APTT 32.3 (25.6-32.8) SEC Sodium 131 L (136-145) mmol/L Potassium 4.1 (3.5-5.1) mmol/L Chloride 95 L (98-107) mmol/L Carbon Dioxide 28 (21-32) mmol/L Anion Gap 12.1 (10-20) mmol/L BUN 12 (7-18) mg/dL Creatinine 0.8 (0.55-1.02) mg/dL Est Cr Clr Drug Dosing TNP Estimated GFR (MDRD) > 60 Glucose 134 H (74-106) mg/dL Lactic Acid 0.9 (0.4-2.0) mmol/L Calcium 8.9 (8.5-10.1) mg/dL Corrected Calcium 9.22 (8.5-10.1) mg/dL Magnesium 1.9 (1.8-2.4) mg/dL Total Bilirubin 0.4 (0.2-1.0) mg/dL AST 15 (15-37) U/L ALT 28 (14-59) U/L Alkaline Phosphatase 57 (46-116) U/L Troponin I < 0.017 (<=0.056) ng/mL C-Reactive Protein 0.9 (<=0.9) mg/dL NT-Pro-B Natriuret Pep 206 (<=450) pg/mL Total Protein 7.3 (6.4-8.2) g/dL Albumin 3.6 (3.4-5.0) g/dL Globulin 3.7 Albumin/Globulin Ratio 0.97 Urine Color (YELLOW) Urine Appearance (CLEAR) Urine pH (5.0-8.0) Ur Specific [place] Urine Protein (NEGATIVE) mg/dL Urine Glucose (UA) (NEGATIVE) mg/dL Urine Ketones (NEGATIVE) mg/dL Urine Occult Blood (NEGATIVE) Urine Nitrite (NEGATIVE) Urine Bilirubin (NEGATIVE) Urine Urobilinogen (0.2) EU/dL Ur Leukocyte Esterase (NEGATIVE) SARS CoV-2 RNA Rapid DAMION (NEGATIVE) 05/23/20 05/23/20 05/23/20 Range/Units 17:35 17:35 17:36 WBC 8.9 (4.0-10.0) x10^3/uL RBC 4.02 (4.00-5.50) x10^6/uL Hgb 12.5 (12.0-16.0) g/dL Hct 37.7 (33.0-47.0) % MCV 93.8 H (78.0-93.0) fL MCH 31.1 (26.0-32.0) pg MCHC 33.2 (32.0-36.0) g/dL RDW Coeff of Ghada 12.6 (10.0-15.0) % Plt Count 309 (130-400) x10^3/uL Neut % (Auto) 66.1 (50.0-80.0) % Lymph % (Auto) 17.4 L (25.0-50.0) % [place] % (Auto) 14.9 H (2.0-11.0) % Eos % (Auto) 1.2 (0.0-4.0) % Baso % (Auto) 0.4 (0.2-1.2) % PT 11.4 (9.5-12.3) SEC INR 1.1 L (2.0-3.5) APTT (25.6-32.8) SEC Sodium (136-145) mmol/L Potassium (3.5-5.1) mmol/L Chloride (98-107) mmol/L Carbon Dioxide (21-32) mmol/L Anion Gap (10-20) mmol/L BUN (7-18) mg/dL Creatinine (0.55-1.02) mg/dL Est Cr Clr Drug Dosing Estimated GFR (MDRD) Glucose (74-106) mg/dL Lactic Acid (0.4-2.0) mmol/L Calcium (8.5-10.1) mg/dL Corrected Calcium (8.5-10.1) mg/dL Magnesium (1.8-2.4) mg/dL Total Bilirubin (0.2-1.0) mg/dL AST (15-37) U/L ALT (14-59) U/L Alkaline Phosphatase (46-116) U/L Troponin I (<=0.056) ng/mL C-Reactive Protein (<=0.9) mg/dL NT-Pro-B Natriuret Pep (<=450) pg/mL Total Protein (6.4-8.2) g/dL Albumin (3.4-5.0) g/dL Globulin Albumin/Globulin Ratio Urine Color (YELLOW) Urine Appearance (CLEAR) Urine pH (5.0-8.0) Ur Specific [place] Urine Protein (NEGATIVE) mg/dL Urine Glucose (UA) (NEGATIVE) mg/dL Urine Ketones (NEGATIVE) mg/dL Urine Occult Blood (NEGATIVE) Urine Nitrite (NEGATIVE) Urine Bilirubin (NEGATIVE) Urine Urobilinogen (0.2) EU/dL Ur Leukocyte Esterase (NEGATIVE) SARS CoV-2 RNA Rapid DAMION Negative (NEGATIVE) 05/23/20 05/23/20 05/24/20 Range/Units 18:40 23:50 06:55 WBC (4.0-10.0) x10^3/uL RBC (4.00-5.50) x10^6/uL Hgb (12.0-16.0) g/dL Hct (33.0-47.0) % MCV (78.0-93.0) fL MCH (26.0-32.0) pg MCHC (32.0-36.0) g/dL RDW Coeff of Ghada (10.0-15.0) % Plt Count (130-400) x10^3/uL Neut % (Auto) (50.0-80.0) % Lymph % (Auto) (25.0-50.0) % [place] % (Auto) (2.0-11.0) % Eos % (Auto) (0.0-4.0) % Baso % (Auto) (0.2-1.2) % PT (9.5-12.3) SEC INR (2.0-3.5) APTT (25.6-32.8) SEC Sodium (136-145) mmol/L Potassium (3.5-5.1) mmol/L Chloride (98-107) mmol/L Carbon Dioxide (21-32) mmol/L Anion Gap (10-20) mmol/L BUN (7-18) mg/dL Creatinine (0.55-1.02) mg/dL Est Cr Clr Drug Dosing Estimated GFR (MDRD) Glucose (74-106) mg/dL Lactic Acid (0.4-2.0) mmol/L Calcium (8.5-10.1) mg/dL Corrected Calcium (8.5-10.1) mg/dL Magnesium (1.8-2.4) mg/dL Total Bilirubin (0.2-1.0) mg/dL AST (15-37) U/L ALT (14-59) U/L Alkaline Phosphatase (46-116) U/L Troponin I < 0.017 < 0.017 (<=0.056) ng/mL C-Reactive Protein (<=0.9) mg/dL NT-Pro-B Natriuret Pep (<=450) pg/mL Total Protein (6.4-8.2) g/dL Albumin (3.4-5.0) g/dL Globulin Albumin/Globulin Ratio Urine Color Yellow (YELLOW) Urine Appearance Clear (CLEAR) Urine pH 6.0 (5.0-8.0) Ur Specific [place] 1.020 Urine Protein Negative (NEGATIVE) mg/dL Urine Glucose (UA) Negative (NEGATIVE) mg/dL Urine Ketones Negative (NEGATIVE) mg/dL Urine Occult Blood Negative (NEGATIVE) Urine Nitrite Negative (NEGATIVE) Urine Bilirubin Negative (NEGATIVE) Urine Urobilinogen 0.2 (0.2) EU/dL Ur Leukocyte Esterase Negative (NEGATIVE) SARS CoV-2 RNA Rapid DAMION (NEGATIVE) Med Orders - Current: Current Medications Hydrocodone Bitart/Acetaminophen ([place] 325-5 Mg) 1 tab PO Q4H PRN PRN Reason: Pain (moderate 4-6) Last Admin: 05/24/20 02:50 Dose: 1 tab Documented by: Albuterol (Proventil Neb Soln) 2.5 mg NEB QIDRT PRN PRN Reason: Shortness of Breath Atenolol (Tenormin) 12.5 mg PO DAILY [facility] Last Admin: 05/24/20 08:22 Dose: 12.5 mg Documented by: Cholecalciferol (Vitamin D3) 50 mcg PO DAILY [facility] Last Admin: 05/24/20 08:22 Dose: 50 mcg Documented by: Furosemide (Lasix) 20 mg PO DAILY [facility] Last Admin: 05/24/20 08:24 Dose: 20 mg Documented by: Levothyroxine Sodium (Levothyroxine) 25 mcg PO ACBREAKFAST [facility] Last Admin: 05/24/20 06:40 Dose: 25 mcg Documented by: Cod Liver Oil (Own (Supply)) 1 cap PO DAILY [facility] Last Admin: 05/24/20 09:24 Dose: Not Given Documented by: Olopatadine [Pataday (0.2% Ophth Soln]) 1 drop EYEBOTH DAILY PRN PRN Reason: Allergies Ubidecarenone [Co Q- (10] 100 Mg) 0 mg PO DAILY [facility] Last Admin: 05/24/20 09:25 Dose: Not Given Documented by: Nystatin (Nystatin Crm) 0 gm TOP BID [facility] Last Admin: 05/24/20 08:24 Dose: 1 applic Documented by: Rivaroxaban (Xarelto) 20 mg PO WITHDINNER [facility] Last Admin: 05/23/20 23:22 Dose: 20 mg Documented by: Sodium Chloride (Saline Flush) 10 ml FLUSH ASDIRECTED PRN PRN Reason: Keep Vein Open Comments:: I did get an interrogation of the patient's pacemaker and spoke with the [place] [facility]. She had about a run of atrial fibrillation during the day yesterday for about 3 hrs with a heart rate that did not go over 110. She had no ventricular ectopy. Otherwise the rest of her pacer interrogation was normal. - Exam General: Reports: Alert, Oriented HEENT: Reports: Pupils Equal, Pupils Reactive, EOMI Neck: Reports: Supple Lungs: Reports: Clear to Auscultation, Normal Respiratory Effort Cardiovascular: Reports: Regular Rate, Regular Rhythm GI/Abdominal Exam: Normal Bowel Sounds, Soft, Non-Tender (Female) Exam: Deferred Rectal (Female) Exam: Deferred Back Exam: Reports: Normal Inspection, Full Range of Motion. Denies: Paraspinal Tenderness, Vertebral Tenderness Extremities: Normal Inspection Skin: Reports: Warm, Dry, Intact Neurological: Reports: No New Focal Deficit Psy/Mental Status: Reports: Alert, Normal Affect, Normal Mood
== END 2020-05-24 15:30 | disposition home or self-care (01) ==
LOC: SUPCPDRO 17:23 → VM.ED 17:23 → VM.MS 18:57
PROVIDERS: ADMIT Physician Assistant; ATTEND Physician Assistant
DX: R06.02 Shortness of breath (principal); G89.4 Chronic pain syndrome; B37.49 Other urogenital candidiasis; M54.5 Low back pain; R46.0 Very low level of personal hygiene; I10 Essential (primary) hypertension; J44.9 Chronic obstructive pulmonary disease, unspecified; E11.9 Type 2 diabetes mellitus without complications; K21.9 Gastro-esophageal reflux disease without esophagitis; J43.9 Emphysema, unspecified; R00.0 Tachycardia, unspecified; I25.10 Atherosclerotic heart disease of native coronary artery without angina pectoris; Z20.828 Contact with and (suspected) exposure to other viral communicable diseases; Z88.8 Allergy status to other drugs, medicaments and biological substances; Z88.1 Allergy status to other antibiotic agents; Z91.012 Allergy to eggs; Z88.0 Allergy status to penicillin; Z91.011 Allergy to milk products; Z79.899 Other long term (current) drug therapy; Z95.0 Presence of cardiac pacemaker; Z90.49 Acquired absence of other specified parts of digestive tract; Z79.01 Long term (current) use of anticoagulants
CPT/HCPCS: 36415; 71045; 80053; 81003; 83605; 83735; 83880; 84484; 85025; 85610; 85730; 86140; 87040; 93005; 93010; 97161-GP; 99217; 99220; 99285-25; A9270-GY; G0378; U0002

== ENCOUNTER 2020-05-31 19:52 | Inpatient (IN) | payer MEDICARE, MEDICAID ==
--- NOTE | 2020-05-31 20:07 | EDM.PDOC ---
ED HPI GENERAL MEDICAL PROBLEM - General Time Seen by Provider: 05/31/20 19:56 Source of Information: Reports: Patient, EMS, Family - History of Present Illness INITIAL COMMENTS - FREE TEXT/NARRATIVE: Alice is an 89 y/o female who is brought to the ER by EMS after she called 911 due to "pain all over". She denies that she has fallen or injured herself, but she has pain in her left leg and lower back region making it nearly impossible for her to move. She is planning to [facility] the prison on [facility], but she is really unable to live alone any longer. Her son lives in [place] and unable to be here to care for her. Her son reports that she has been screaming and very paranoid about someone breaking into her house. Her daughter lives here in [place], but is not bale to help care for her mother due to her own health. Patient denies any fall or injury today, but reports that pain is there "all the time". Generalized Pain Score (Numeric/FACES): 10 - Related Data Allergies Allergy/AdvReac Type Severity Reaction Status Date / Time acetaminophen [From Tylenol] Allergy Other Verified 05/23/20 17:49 amoxicillin [Amoxicillin] Allergy Rash Verified 05/23/20 17:49 atorvastatin [From Lipitor] Allergy Cannot Verified 05/23/20 17:49 Remember metoprolol Allergy Cannot Verified 05/23/20 17:49 Remember Penicillins Allergy Rash Verified 05/23/20 17:49 propoxyphene HCl Allergy Other Verified 05/23/20 17:49 [From Darvon] aspirin AdvReac Stomach Verified 05/23/20 17:49 Upset Dairy Products AdvReac Cough Verified 05/23/20 17:49 egg AdvReac Cough Verified 05/24/20 08:33 Home Meds: Home Meds Albuterol Sulfate [Albuterol Sulfate HFA] 2 puff IH QID PRN 09/08/13 [History] Cod Liver Oil 1 cap PO DAILY 09/08/13 [History] Furosemide [Lasix] 20 mg PO DAILY 09/08/13 [History] Nitroglycerin [IJP: Nitroglycerin] 0.4 mg SL ASDIRECTED PRN #30 tablet, sublingual 12/27/15 [Rx] Atenolol [Tenormin] 12.5 mg PO DAILY 05/25/17 [History] Cholecalciferol (Vitamin D3) [D3-2000] 2,000 unit PO DAILY 05/25/17 [History] Ubidecarenone [Co Q-10] 100 mg PO DAILY 05/25/17 [History] Olopatadine [[place] 0.2% Ophth Soln] 1 drop OP DAILY PRN 07/12/17 [History] Levothyroxine Sodium [Synthroid] 25 mcg PO ACBREAKFAST 12/01/17 [History] Rivaroxaban [Xarelto] 20 mg PO DAILY 12/16/19 [History] Nystatin [Nystatin Crm] 0 gm TOP BID #1 tube 05/24/20 [Rx] atenoloL [Tenormin] 12.5 mg PO DAILY tablet 05/24/20 [Rx] Past Medical History HEENT History: Reports: Cataract Cardiovascular History: Reports: Angina, Hypertension, Pacemaker, Syncope Respiratory History: Reports: Asthma, COPD, SOB, Other (See Below) Other Respiratory History: emphysema Gastrointestinal History: Reports: GERD Genitourinary History: Reports: Urinary Incontinence Musculoskeletal History: Reports: Arthritis, Fibromyalgia Neurological History: Reports: Vertigo Psychiatric History: Reports: Panic Attack Endocrine/Metabolic History: Reports: Diabetes, Type II Oncologic (Cancer) History: Reports: Cervix - Past Surgical History Cardiovascular Surgical History: Reports: Pacer Respiratory Surgical History: Reports: None GI Surgical History: Reports: Appendectomy, Cholecystectomy Female Surgical History: Reports: None Social & Family History - Caffeine Use Caffeine Use: Reports: Coffee Review of Systems - Review of Systems Review Of Systems: See Below Constitutional: Reports: Weakness Eyes: Reports: No Symptoms Ears: Reports: No Symptoms Nose: Reports: No Symptoms Mouth/Throat: Reports: No Symptoms Respiratory: Reports: No Symptoms Cardiovascular: Reports: No Symptoms GI/Abdominal: Reports: No Symptoms Genitourinary: Reports: No Symptoms Musculoskeletal: Reports: Back Pain, Leg Pain Skin: Reports: No Symptoms Neurological: Reports: No Symptoms Psychiatric: Reports: Anxiety ED EXAM, GENERAL - Physical Exam Exam: See Below General Appearance: Alert, WD/WN, Anxious, Obese (Elderly female.) Ears: Normal Canal, Hearing Grossly Normal Nose: Normal Inspection, Normal Mucosa Throat/Mouth: Normal Inspection, Normal Lips, Normal Voice Head: Atraumatic Neck: Supple Respiratory/Chest: No Respiratory Distress, Lungs Clear, Chest Non-Tender Cardiovascular: Regular Rate, Rhythm GI/Abdominal: Normal Bowel Sounds, Soft (Female) Exam: Deferred, Other (Normal female genitalis, note erythemtous rash to labia and surrounding perineum, smells of urine and poor hygiene noted.) Rectal (Female) Exam: Deferred Back Exam: Normal Inspection Extremities: Pedal Edema (2+, nonpitting), Leg Pain Neurological: Alert, Oriented, CN II-XII Intact Psychiatric: Anxious Skin Exam: Warm, Dry, Intact, Normal Color Lymphatic: No Adenopathy Course - Vital Signs Text/Narrative:: 1954 The patient was seen by the LEAD HANDLER. LEAD HANDLER discussed patient status in regards to prison admission on Wednesday and any available family to care for her this weekend and there is not anybody. Labs were ordered. Case discussed with Dr Amanda Guadarrama. 2049 Labs reviewed. CBC and CMP neg. Note US Leuk Es=small, WBCs=30-40, Bacteria=Mod, Epis few. Will treat with Ceftriaxone 1gm IVP x 1 in the ER to cover for a UTI, will await urine cx results. Patient unable to move well in the ER during her cares. Will plan to admit her to observation for Exacerbation of Chronic Pain, Inability to Care for Self, and UTI. Last Recorded V/S: Last Vital Signs Temp 36.8 C 05/31/20 20:14 Pulse 83 05/31/20 20:14 Resp 16 05/31/20 20:14 BP 151/69 H 05/31/20 20:14 Pulse Ox 94 L 05/31/20 20:14 - Orders/Labs/Meds Orders: Active Orders 24 hr Category Date Time Status CULTURE URINE [RM] Stat Lab 05/31/20 20:25 Received Labs: Laboratory Tests 05/31/20 05/31/20 05/31/20 Range/Units 20:02 20:02 20:25 WBC 8.2 (4.0-10.0) x10^3/uL RBC 3.75 L (4.00-5.50) x10^6/uL Hgb 11.7 L (12.0-16.0) g/dL Hct 34.9 (33.0-47.0) % MCV 93.1 H (78.0-93.0) fL MCH 31.2 (26.0-32.0) pg MCHC 33.5 (32.0-36.0) g/dL RDW Coeff of Ghada 12.9 (10.0-15.0) % Plt Count 305 (130-400) x10^3/uL Neut % (Auto) 59.0 (50.0-80.0) % Lymph % (Auto) 20.0 L (25.0-50.0) % [place] % (Auto) 18.8 H (2.0-11.0) % Eos % (Auto) 1.8 (0.0-4.0) % Baso % (Auto) 0.4 (0.2-1.2) % Sodium 133 L (136-145) mmol/L Potassium 4.0 (3.5-5.1) mmol/L Chloride 99 (98-107) mmol/L Carbon Dioxide 24 (21-32) mmol/L Anion Gap 14.0 (10-20) mmol/L BUN 12 (7-18) mg/dL Creatinine 0.7 (0.55-1.02) mg/dL Est Cr Clr Drug Dosing 47.97 mL/min Estimated GFR (MDRD) > 60 Glucose 120 H (74-106) mg/dL Calcium 8.5 (8.5-10.1) mg/dL Corrected Calcium 8.98 (8.5-10.1) mg/dL Magnesium 2.0 (1.8-2.4) mg/dL Total Bilirubin 0.3 (0.2-1.0) mg/dL AST 17 (15-37) U/L ALT 21 (14-59) U/L Alkaline Phosphatase 55 (46-116) U/L Total Protein 7.1 (6.4-8.2) g/dL Albumin 3.4 (3.4-5.0) g/dL Globulin 3.7 Albumin/Globulin Ratio 0.92 Urine Color Yellow (YELLOW) Urine Appearance Slightly cloudy H (CLEAR) Urine pH 5.5 (5.0-8.0) Ur Specific [place] 1.025 Urine Protein Negative (NEGATIVE) mg/dL Urine Glucose (UA) Negative (NEGATIVE) mg/dL Urine Ketones Negative (NEGATIVE) mg/dL Urine Occult Blood Negative (NEGATIVE) Urine Nitrite Negative (NEGATIVE) Urine Bilirubin Negative (NEGATIVE) Urine Urobilinogen 0.2 (0.2) EU/dL Ur Leukocyte Esterase Small H (NEGATIVE) Urine RBC 0-5 (NOT SEEN) /HPF Urine WBC 30-40 H (NOT SEEN) /HPF Ur Squamous Epith Cells Few H (NEGATIVE) /HPF Urine Bacteria Moderate H (NEGATIVE) /HPF Urine Mucus Rare H (NEGATIVE) /LPF Meds: Medications Discontinued Medications Generic Name Dose Route Start Last Admin Trade Name Freq PRN Reason Stop Dose Admin Ceftriaxone Sodium 1 gm 05/31/20 20:55 Rocephin IVPUSH 05/31/20 20:56 STAT ONE Departure - Departure Time of Disposition: 20:59 Disposition: Refer to Observation Condition: Good Clinical Impression: Exacerbation of chronic back pain, Unable to care for self, Candidiasis of female genitalia UTI (urinary tract infection) Qualifiers: Urinary tract infection type: site unspecified Hematuria presence: without hematuria Qualified Code(s): N39.0 - Urinary tract infection, site not specified - Discharge Information Referrals: Yahaira Gentile MD [Primary Care Provider] - Sepsis Event Note (ED) - Focused Exam Vital Signs: Vital Signs Temp Pulse Resp BP Pulse Ox 05/31/20 20:14 36.8 C 83 16 151/69 H 94 L - My Orders Last 24 Hours: My Active Orders 05/31/20 20:25 CULTURE URINE [RM] Stat - Assessment/Plan Admission H&P: Please use this note as an admission H&P Last 24 Hours: My Active Orders 05/31/20 20:25 CULTURE URINE [RM] Stat Assessment:: 1)Inability to Care for Self 2)Exacerbation of Chronic Pain 3)UTI 4)Shirley fo the Female Genitalia Plan: -Ceftriaxone given for the UTI -Will order Tylenol or Hydrocodone-APAP for pain -Will treat the fungal rash -Nursing to assist with ADLs -Dr Amanda Guadarrama to see patient in the AM
[2020-05-31 20:38] LABS: CHLORIDE,CL 99 mmol/L (98-107); SODIUM,NA 133 mmol/L (136-145)
[2020-05-31] MEDS ORDERED: cefTRIAXone 1 GM Vial IVPUSH ONE (20:55)
[2020-05-31] MEDS ORDERED: Acetaminophen 325 MG Tab PO PRN (21:32)
[2020-05-31] MEDS ORDERED: Albuterol HFA 18 Gm Inhaler INH PRN (21:36)
[2020-05-31] MEDS ORDERED: Ketotifen 0.025% Ophth Soln 5 ML Bottle EYEBOTH PRN (21:36)
[2020-06-01] MEDS: Acetaminophen/HYDROcodone 325-5 MG Tab PO PRN ×3 (02:01→21:11)
[2020-06-01] MEDS: Levothyroxine 25 MCG Tab PO SCH ×2 (05:51→06:05)
[2020-06-01] MEDS ORDERED: Rivaroxaban 10 MG Tab PO SCH (08:00)
[2020-06-01] MEDS: Atenolol 25 MG Tab PO SCH (08:54)
[2020-06-01] MEDS: Cholecalciferol (Vitamin D3) 25 MCG Tab PO SCH (08:54)
[2020-06-01] MEDS: Betamethasone Dipropionate/Clotrimazole 0.05-1% Crm 15 GM Tube TOP SCH ×2 (08:55→20:10)
[2020-06-01] MEDS: Furosemide 20 MG Tab PO SCH (08:55)
--- NOTE | 2020-06-01 10:49 | PCM.PN ---
- General Info Date of Service: 06/01/20 Admission Dx/Problem (Free Text): Alice is an 89 y/o female who was brought into the ER by EMS on 05/31/2020 after she called 911 due to "pain all over". At that time denied any acute injury, does suffer from chronic pains. Told the ER provider that she is planning to go to [facility] on Wednesday due to inability to care for herself any longer. Provider did communicate with her son who lives in [place] who reported that she has been screaming and very paranoid about someone breaking into her house earlier that day. ER workup was revealing only for UTI. patient was treated with 1 dose of rocephin and admitted under observation status. No overnight events. Patient states that she is feeling okay this morning. Did have a big charley horse last night that the nurse helped her work out in her leg. States that she was unable to urinate yesterday evening but this has improved. State that she probably is not drinking enough water while at home. Functional Status: Reports: Pain Controlled - Review of Systems General: Reports: Weakness HEENT: Reports: No Symptoms Pulmonary: Reports: No Symptoms Cardiovascular: Reports: No Symptoms Gastrointestinal: Reports: No Symptoms Genitourinary: Reports: No Symptoms (improved) Musculoskeletal: Reports: Neck Pain, Shoulder Pain, Arm Pain, Back Pain, Leg Pain Skin: Reports: Rash (lower legs) Neurological: Reports: No Symptoms Psychiatric: Reports: Confusion (thought people were breaking into her house yesterday), Agitation - Patient Data Vitals - Most Recent: Last Vital Signs Temp 97.3 F 06/01/20 09:56 Pulse 60 06/01/20 09:56 Resp 20 06/01/20 09:56 BP 117/59 L 06/01/20 09:56 Pulse Ox 94 L 06/01/20 09:56 Weight - Most Recent: 214 lb I&O - Last 24 Hours: Intake & Output 05/31/20 06/01/20 06/01/20 22:59 06:59 14:59 Intake Total 1000 300 Balance 1000 300 Lab Results Last 24 Hours: Laboratory Results - last 24 hr 05/31/20 05/31/20 05/31/20 Range/Units 20:02 20:02 20:25 WBC 8.2 (4.0-10.0) x10^3/uL RBC 3.75 L (4.00-5.50) x10^6/uL Hgb 11.7 L (12.0-16.0) g/dL Hct 34.9 (33.0-47.0) % MCV 93.1 H (78.0-93.0) fL MCH 31.2 (26.0-32.0) pg MCHC 33.5 (32.0-36.0) g/dL RDW Coeff of Ghada 12.9 (10.0-15.0) % Plt Count 305 (130-400) x10^3/uL Neut % (Auto) 59.0 (50.0-80.0) % Lymph % (Auto) 20.0 L (25.0-50.0) % [place] % (Auto) 18.8 H (2.0-11.0) % Eos % (Auto) 1.8 (0.0-4.0) % Baso % (Auto) 0.4 (0.2-1.2) % Sodium 133 L (136-145) mmol/L Potassium 4.0 (3.5-5.1) mmol/L Chloride 99 (98-107) mmol/L Carbon Dioxide 24 (21-32) mmol/L Anion Gap 14.0 (10-20) mmol/L BUN 12 (7-18) mg/dL Creatinine 0.7 (0.55-1.02) mg/dL Est Cr Clr Drug Dosing 47.97 mL/min Estimated GFR (MDRD) > 60 Glucose 120 H (74-106) mg/dL Calcium 8.5 (8.5-10.1) mg/dL Corrected Calcium 8.98 (8.5-10.1) mg/dL Magnesium 2.0 (1.8-2.4) mg/dL Total Bilirubin 0.3 (0.2-1.0) mg/dL AST 17 (15-37) U/L ALT 21 (14-59) U/L Alkaline Phosphatase 55 (46-116) U/L Total Protein 7.1 (6.4-8.2) g/dL Albumin 3.4 (3.4-5.0) g/dL Globulin 3.7 Albumin/Globulin Ratio 0.92 Urine Color Yellow (YELLOW) Urine Appearance Slightly cloudy H (CLEAR) Urine pH 5.5 (5.0-8.0) Ur Specific [place] 1.025 Urine Protein Negative (NEGATIVE) mg/dL Urine Glucose (UA) Negative (NEGATIVE) mg/dL Urine Ketones Negative (NEGATIVE) mg/dL Urine Occult Blood Negative (NEGATIVE) Urine Nitrite Negative (NEGATIVE) Urine Bilirubin Negative (NEGATIVE) Urine Urobilinogen 0.2 (0.2) EU/dL Ur Leukocyte Esterase Small H (NEGATIVE) Urine RBC 0-5 (NOT SEEN) /HPF Urine WBC 30-40 H (NOT SEEN) /HPF Ur Squamous Epith Cells Few H (NEGATIVE) /HPF Urine Bacteria Moderate H (NEGATIVE) /HPF Urine Mucus Rare H (NEGATIVE) /LPF Med Orders - Current: Current Medications Acetaminophen (Tylenol) 650 mg PO Q4H PRN PRN Reason: Pain (Mild 1-3)/fever Hydrocodone Bitart/Acetaminophen ([place] 325-5 Mg) 1 tab PO Q4H PRN PRN Reason: Pain (moderate 4-6) Last Admin: 06/01/20 02:01 Dose: 1 tab Documented by: Albuterol (Ventolin Hfa) 2 gm INH QID PRN PRN Reason: Shortness of Breath Atenolol (Tenormin) 12.5 mg PO DAILY [facility] Last Admin: 06/01/20 08:54 Dose: 12.5 mg Documented by: Betamethasone/Clotrimazole (Lotrisone) 1 gm TOP BID [facility] Last Admin: 06/01/20 08:55 Dose: Not Given Documented by: Cholecalciferol (Vitamin D3) 50 mcg PO DAILY [facility] Last Admin: 06/01/20 08:54 Dose: 50 mcg Documented by: Furosemide (Lasix) 20 mg PO DAILY [facility] Last Admin: 06/01/20 08:55 Dose: 20 mg Documented by: Ketotifen Fumarate (Ketotifen 0.025% Ophth Soln) 0 ml EYEBOTH DAILY PRN PRN Reason: Allergies Levothyroxine Sodium (Levothyroxine) 25 mcg PO ACBREAKFAST [facility] Last Admin: 06/01/20 06:05 Dose: Not Given Documented by: Rivaroxaban (Xarelto) 20 mg PO 1800 YAMILETH Discontinued Medications Ceftriaxone Sodium (Rocephin) 1 gm IVPUSH STAT ONE Stop: 05/31/20 20:56 Last Admin: 05/31/20 21:12 Dose: 1 gm Documented by: Rivaroxaban (Xarelto) 20 mg PO DAILY YAMILETH - Exam General: Alert, Oriented HEENT: Pupils Equal, EOMI Neck: Supple Lungs: Clear to Auscultation, Normal Respiratory Effort Cardiovascular: Regular Rate, Regular Rhythm, Murmurs (/6 ejectoin) GI/Abdominal Exam: Normal Bowel Sounds, Soft, Non-Tender Back Exam: Normal Inspection Extremities: Pedal Edema Skin: Warm, Dry, Rash (around the sock-line bilaterally, extends proximally on the right) Psy/Mental Status: Alert, Normal Affect, Normal Mood Sepsis Event Note - Evaluation Sepsis Screening Result: No Definite Risk - Focused Exam Vital Signs: Vital Signs Temp Pulse Pulse Resp BP BP Pulse Ox 06/01/20 09:56 97.3 F 60 20 117/59 L 94 L 06/01/20 08:54 63 127/63 06/01/20 06:00 97.0 F 63 15 127/63 92 L 06/01/20 02:00 97.8 F 65 18 112/53 L 97 - Problem List & Annotations (1) UTI (urinary tract infection) SNOMED Code(s): 42509620 Code(s): N39.0 - URINARY TRACT INFECTION, SITE NOT SPECIFIED Status: Acute Current Visit: Yes Qualifiers: Urinary tract infection type: site unspecified Hematuria presence: without hematuria Qualified Code(s): N39.0 - Urinary tract infection, site not specified (2) Delirium SNOMED Code(s): 0460987 Code(s): R41.0 - DISORIENTATION, UNSPECIFIED Status: Acute Current Visit: Yes (3) Unable to care for self SNOMED Code(s): 087467720, 144150092 Code(s): Z78.9 - OTHER SPECIFIED HEALTH STATUS Status: Chronic Current Visit: Yes (4) Acute exacerbation of chronic low back pain SNOMED Code(s): 240913247 Code(s): M54.5 - LOW BACK PAIN; G89.29 - OTHER CHRONIC PAIN Status: Chronic Current Visit: No - Problem List Review Problem List Initiated/Reviewed/Updated: Yes - My Orders Last 24 Hours: My Active Orders 06/01/20 10:40 Level of Care [Patient Status] [ADT] Routine - Assessment Assessment:: #UTI #Delirium - Urine demonstrating bacteria and white blood cells, lesion treated with one dose of Rocephin in the ER Plan: - We'll upgrade patient to inpatient status - Repeat Rocephin tonight #Chronic pain Syndrome/Fibromyalgia #Inability to care for self - Patient with acute exacerbation of her chronic pain last evening - Pain well treated with pain medications as well as nursing cares Plan: - Continue the when necessary Tylenol and hydrocodone - Continue home cymbalta - Continue nursing cares - Plan for discharge to [facility] on Wednesday Chronic: A.fib - continue atenolol 12.5 mg daily, continues Xarelto 20mg Diastolic CHF - continue Lasix 20 mg daily Asthma - albuterol when necessary Hypothyroid - continued Synthroid 25 g daily Fungal rash - continue home nystatin Status: upgrade to inpatient Diet: heart health DVT: on therapeutic anticoag CODE: Full Dispo: Anticipate 1-2 more days of antibiotics for the UTI with the associated delirium. Patient will likely be able to discharge to the shelter as originally planned on 06/03/2020.
[2020-06-01] MEDS: Rivaroxaban 10 MG Tab PO SCH (17:14)
[2020-06-01] MEDS: cefTRIAXone 1 GM Vial IVPUSH SCH (20:10)
[2020-06-01] MEDS: Nystatin Crm 30 GM Tube TOP PRN (20:11)
[2020-06-02] MEDS: Levothyroxine 25 MCG Tab PO SCH (06:43)
[2020-06-02] MEDS: Atenolol 25 MG Tab PO SCH (08:22)
[2020-06-02] MEDS: Cholecalciferol (Vitamin D3) 25 MCG Tab PO SCH (08:23)
[2020-06-02] MEDS: Betamethasone Dipropionate/Clotrimazole 0.05-1% Crm 15 GM Tube TOP SCH ×2 (08:23→20:07)
[2020-06-02] MEDS: Furosemide 20 MG Tab PO SCH (08:23)
[2020-06-02] MEDS: Nystatin Crm 30 GM Tube TOP PRN (08:24)
--- NOTE | 2020-06-02 09:59 | PCM.PN ---
- General Info Date of Service: 06/02/20 Admission Dx/Problem (Free Text): Alice is an 89 y/o female who was brought into the ER by EMS on 05/31/2020 after she called 911 due to "pain all over". At that time denied any acute injury, does suffer from chronic pains. Told the ER provider that she is planning to go to [facility] on Wednesday due to inability to care for herself any longer. Provider did communicate with her son who lives in [place] who reported that she has been screaming and very paranoid about someone breaking into her house earlier that day. ER workup was revealing only for UTI. Patient was treated with 1 dose of Rocephin and admitted under observation status. Subjective Update: No acute events overnight. 2/3 doses of Rocephin received. Notes her urinary symptoms have improved. Still notes troubles with chronic pains. Anticipating an early discharge tomorrow so she can get her affairs in order to be admitted to [facility] tomorrow late morning. - Patient Data Vitals - Most Recent: Last Vital Signs Temp 97.9 F 06/02/20 05:44 Pulse 62 06/02/20 08:22 Resp 18 06/02/20 05:44 BP 136/71 06/02/20 08:22 Pulse Ox 93 L 06/02/20 05:44 Weight - Most Recent: 217 lb 7 oz I&O - Last 24 Hours: Intake & Output 06/01/20 06/02/20 06/02/20 22:59 06:59 14:59 Intake Total 1020 800 Balance 1020 800 Med Orders - Current: Current Medications Acetaminophen (Tylenol) 650 mg PO Q4H PRN PRN Reason: Pain (Mild 1-3)/fever Hydrocodone Bitart/Acetaminophen ([place] 325-5 Mg) 1 tab PO Q4H PRN PRN Reason: Pain (moderate 4-6) Last Admin: 06/01/20 21:11 Dose: 1 tab Documented by: Albuterol (Ventolin Hfa) 2 gm INH QID PRN PRN Reason: Shortness of Breath Atenolol (Tenormin) 12.5 mg PO DAILY [facility] Last Admin: 06/02/20 08:22 Dose: 12.5 mg Documented by: Betamethasone/Clotrimazole (Lotrisone) 1 gm TOP BID [facility] Last Admin: 06/02/20 08:23 Dose: 1 applic Documented by: Ceftriaxone Sodium (Rocephin) 1 gm IVPUSH DAILY@1999 [facility] Stop: 06/02/20 20:01 Last Admin: 06/01/20 20:10 Dose: 1 gm Documented by: Cholecalciferol (Vitamin D3) 50 mcg PO DAILY [facility] Last Admin: 06/02/20 08:23 Dose: 50 mcg Documented by: Furosemide (Lasix) 20 mg PO DAILY [facility] Last Admin: 06/02/20 08:23 Dose: 20 mg Documented by: Ketotifen Fumarate (Ketotifen 0.025% Ophth Soln) 0 ml EYEBOTH DAILY PRN PRN Reason: Allergies Levothyroxine Sodium (Levothyroxine) 25 mcg PO ACBREAKFAST [facility] Last Admin: 06/02/20 06:43 Dose: 25 mcg Documented by: Nystatin (Nystatin Crm) 0 gm TOP BID PRN PRN Reason: Rash Last Admin: 06/02/20 08:24 Dose: 1 applic Documented by: Rivaroxaban (Xarelto) 20 mg PO 1800 [facility] Last Admin: 06/01/20 17:14 Dose: 20 mg Documented by: Discontinued Medications Ceftriaxone Sodium (Rocephin) 1 gm IVPUSH STAT ONE Stop: 05/31/20 20:56 Last Admin: 05/31/20 21:12 Dose: 1 gm Documented by: Rivaroxaban (Xarelto) 20 mg PO DAILY [facility] - Exam General: Alert, Oriented HEENT: Pupils Equal Lungs: Clear to Auscultation, Normal Respiratory Effort Cardiovascular: Regular Rate, Regular Rhythm, Murmurs (1/6 ejectoin) GI/Abdominal Exam: Normal Bowel Sounds, Soft, Non-Tender Extremities: Pedal Edema (trace bilateral ankles) Skin: Warm, Dry, Ecchymosis (red discoloratoin around sock-line bilaterally, extends proximally on the right zee) Neurological: No New Focal Deficit Psy/Mental Status: Alert, Normal Affect, Normal Mood Sepsis Event Note - Evaluation Sepsis Screening Result: No Definite Risk - Focused Exam Vital Signs: Vital Signs Temp Pulse Pulse Resp BP BP Pulse Ox 06/02/20 08:22 62 136/71 06/02/20 05:44 97.9 F 62 18 136/71 93 L 06/02/20 02:00 97.6 F 61 18 137/87 96 06/01/20 22:00 97.8 F 62 19 137/67 95 - Problem List & Annotations (1) UTI (urinary tract infection) SNOMED Code(s): 29401345 Code(s): N39.0 - URINARY TRACT INFECTION, SITE NOT SPECIFIED Status: Acute Current Visit: Yes Qualifiers: Urinary tract infection type: site unspecified Hematuria presence: without hematuria Qualified Code(s): N39.0 - Urinary tract infection, site not specified (2) Delirium SNOMED Code(s): 6004320 Code(s): R41.0 - DISORIENTATION, UNSPECIFIED Status: Resolved Current Visit: Yes (3) Unable to care for self SNOMED Code(s): 506079910, 152452555 Code(s): Z78.9 - OTHER SPECIFIED HEALTH STATUS Status: Chronic Current Visit: Yes (4) Acute exacerbation of chronic low back pain SNOMED Code(s): 147549959 Code(s): M54.5 - LOW BACK PAIN; G89.29 - OTHER CHRONIC PAIN Status: Chronic Current Visit: No - Problem List Review Problem List Initiated/Reviewed/Updated: Yes - My Orders Last 24 Hours: My Active Orders 06/01/20 10:40 Level of Care [Patient Status] [ADT] Routine 06/01/20 11:02 Dietary Supplements [RC] BIDMEALS 06/01/20 17:47 Nystatin [Nystatin Crm] 0 gm TOP BID PRN 06/01/20 20:00 cefTRIAXone [Rocephin] 1 gm IVPUSH DAILY@1999 - Assessment Assessment:: #UTI #Delirium - resolved - Urine demonstrating bacteria and white blood cells, lesion treated with one dose of Rocephin in the ER - 2/3 doses of Rocephin in - Urinary symptoms and mentation improved - VS stable Plan: - 3rd and final dose of Rocephin tonight #Chronic pain Syndrome/Fibromyalgia #Inability to care for self - Patient with acute exacerbation of her chronic pain last evening - Pain well treated with pain medications as well as nursing cares Plan: - Continue the when necessary Tylenol and hydrocodone - Continue home cymbalta - Continue nursing cares - Plan for discharge to [facility] on Wednesday Chronic: A.fib - continue atenolol 12.5 mg daily, continues Xarelto 20mg Diastolic CHF - continue Lasix 20 mg daily Asthma - albuterol when necessary Hypothyroid - continued Synthroid 25 g daily Fungal rash - continue home nystatin Status: upgrade to inpatient Diet: heart health DVT: on therapeutic anticoag CODE: Full Dispo: Anticipate 1 more days of antibiotics for the UTI with the associated delirium. Patient will likely be able to discharge to home to prepare for admit to the longterm as originally planned on 06/03/2020.
[2020-06-02] MEDS: Rivaroxaban 10 MG Tab PO SCH (17:52)
[2020-06-02] MEDS: Acetaminophen/HYDROcodone 325-5 MG Tab PO PRN (17:59)
[2020-06-02] MEDS: cefTRIAXone 1 GM Vial IVPUSH SCH (20:06)
[2020-06-03] MEDS ORDERED: LORazepam 1 MG Tab PO ONE (01:45)
[2020-06-03] MEDS: Acetaminophen/HYDROcodone 325-5 MG Tab PO PRN (02:55)
[2020-06-03] MEDS: Levothyroxine 25 MCG Tab PO SCH (06:17)
--- NOTE | 2020-06-03 06:44 | PCM.DCSUM1 ---
Discharge Summary - Hospital Course Free Text/Narrative:: Alice is an 89yoF who was admitted on 05/31/20 after arriving by EMS with c/o worsening of her chronic pains and inability to live at home. ER provider did speak with son who stated that his mother had been making nonsensical calls claiming people were running outside their house, etc. He stated that they had an appointment to place her into [facility] on 06/03/20. Patient was found to have a UTI and was admitted. She recieved 3 doses of IV Rocephin throughout the weekend with improvement in her UTI symptoms. Her stay was unremarkable other than an episode of agitation in the process excellence manager hours of 06/03/20 where she had an episode of agitation and confusion; even called 911. She was provided 1mg of Ativan with some improvement of her symptoms. In discussion with other providers this behavior is not new for Alice; she does have a history of episode s like this. This morning she is still confused; waxes and wanes between being in the hospital and being home. She did not get much sleep last night. Again, this does not appear to be a new problem and is one of the reasons she will be going to [facility]. Plan is for discharge home with daughter this morning to gather her belongings for [facility] and the family will then take her to [facility] to get her admitted there per their previous appt plans. - Discharge Data Discharge Date: 06/03/20 Discharge Disposition: Home, Self-Care 01 Condition: Poor - Referral to Home Health Primary Care Physician: Yahaira Gentile MD - Discharge Diagnosis/Problem(s) (1) UTI (urinary tract infection) SNOMED Code(s): 68104606 ICD Code: N39.0 - URINARY TRACT INFECTION, SITE NOT SPECIFIED Status: Acute Current Visit: Yes Qualifiers: Urinary tract infection type: site unspecified Hematuria presence: without hematuria Qualified Code(s): N39.0 - Urinary tract infection, site not specified (2) Delirium SNOMED Code(s): 5271499 ICD Code: R41.0 - DISORIENTATION, UNSPECIFIED Status: Resolved Current Visit: Yes (3) Unable to care for self SNOMED Code(s): 557239503, 260730750 ICD Code: Z78.9 - OTHER SPECIFIED HEALTH STATUS Status: Chronic Current Visit: Yes (4) Acute exacerbation of chronic low back pain SNOMED Code(s): 983434698 ICD Code: M54.5 - LOW BACK PAIN; G89.29 - OTHER CHRONIC PAIN Status: Chronic Current Visit: No - Discharge Plan Prescriptions/Med Rec: Acetaminophen/HYDROcodone [[place] 325-5 MG] 1 tab PO Q4H PRN #20 tablet PRN Reason: Pain (Moderate 4-6) Home Medications: Home Meds Albuterol Sulfate [Albuterol Sulfate HFA] 2 puff IH QID PRN 09/08/13 [History] Cod Liver Oil 1 cap PO DAILY 09/08/13 [History] Furosemide [Lasix] 20 mg PO DAILY 09/08/13 [History] Nitroglycerin [IJP: Nitroglycerin] 0.4 mg SL ASDIRECTED PRN #30 tablet, sublingual 12/27/15 [Rx] Cholecalciferol (Vitamin D3) [D3-2000] 2,000 unit PO DAILY 05/25/17 [History] Ubidecarenone [Co Q-10] 100 mg PO DAILY 05/25/17 [History] Olopatadine [Pataday 0.2% Ophth Soln] 1 drop OP DAILY PRN 07/12/17 [History] Levothyroxine Sodium [Synthroid] 25 mcg PO ACBREAKFAST 12/01/17 [History] Rivaroxaban [Xarelto] 20 mg PO DAILY 12/16/19 [History] atenoloL [Tenormin] 12.5 mg PO DAILY tablet 05/24/20 [Rx] DULoxetine [Cymbalta] 20 mg PO DAILY 05/31/20 [History] Nystatin [Nystatin Crm] 1 applic TOP BID PRN 05/31/20 [History] Acetaminophen [Tylenol] 650 mg PO Q4H PRN tablet 06/03/20 [Rx] Acetaminophen/HYDROcodone [[place] 325-5 MG] 1 tab PO Q4H PRN #20 tablet 06/03/20 [Rx] Betamethasone/Clotrimazole [Lotrisone] 1 gm TOP BID tube 06/03/20 [Rx] LORazepam [Ativan] 1 mg PO Q6H #20 tab 06/03/20 [Rx] Forms: ED Department Discharge Referrals: Yahaira Gentile MD [Primary Care Provider] - - Discharge Summary/Plan Comment DC Time >30 min.: No Discharge Summary/Plan Comment: Patient discharging home today with the care of her daughter to get her affairs in order for admit to [facility] later today - Will send for pain medication prn for mod-severe pain - Will send for ativan prn for agitation - No other changes to medication list - Review of Systems HEENT: Reports: Headaches - Patient Data Vitals - Most Recent: Last Vital Signs Temp 97.7 F 06/03/20 06:00 Pulse 60 06/03/20 06:00 Resp 20 06/03/20 06:00 BP 144/78 H 06/03/20 06:00 Pulse Ox 95 06/03/20 06:00 Weight - Most Recent: 217 lb 7 oz I&O - Last 24 hours: Intake & Output 06/02/20 06/02/20 06/03/20 14:59 22:59 06:59 Intake Total 300 480 600 Balance 300 480 600 CHRISTOPHE Results - Last 24 hrs: Microbiology 05/31/20 20:25 Urine Culture - Preliminary Urine, Catheterized Streptococcus Species Med Orders - Current: Current Medications Acetaminophen (Tylenol) 650 mg PO Q4H PRN PRN Reason: Pain (Mild 1-3)/fever Hydrocodone Bitart/Acetaminophen ([place] 325-5 Mg) 1 tab PO Q4H PRN PRN Reason: Pain (moderate 4-6) Last Admin: 06/03/20 02:55 Dose: 1 tab Documented by: Albuterol (Ventolin Hfa) 2 gm INH QID PRN PRN Reason: Shortness of Breath Atenolol (Tenormin) 12.5 mg PO DAILY [facility] Last Admin: 06/02/20 08:22 Dose: 12.5 mg Documented by: Betamethasone/Clotrimazole (Lotrisone) 1 gm TOP BID [facility] Last Admin: 06/02/20 20:07 Dose: 1 applic Documented by: Cholecalciferol (Vitamin D3) 50 mcg PO DAILY [facility] Last Admin: 06/02/20 08:23 Dose: 50 mcg Documented by: Furosemide (Lasix) 20 mg PO DAILY [facility] Last Admin: 06/02/20 08:23 Dose: 20 mg Documented by: Ketotifen Fumarate (Ketotifen 0.025% Ophth Soln) 0 ml EYEBOTH DAILY PRN PRN Reason: Allergies Levothyroxine Sodium (Levothyroxine) 25 mcg PO ACBREAKFAST [facility] Last Admin: 06/03/20 06:17 Dose: 25 mcg Documented by: Nystatin (Nystatin Crm) 0 gm TOP BID PRN PRN Reason: Rash Last Admin: 06/02/20 08:24 Dose: 1 applic Documented by: Rivaroxaban (Xarelto) 20 mg PO 1800 [facility] Last Admin: 06/02/20 17:52 Dose: 20 mg Documented by: Discontinued Medications Ceftriaxone Sodium (Rocephin) 1 gm IVPUSH STAT ONE Stop: 05/31/20 20:56 Last Admin: 05/31/20 21:12 Dose: 1 gm Documented by: Ceftriaxone Sodium (Rocephin) 1 gm IVPUSH DAILY@1999 [facility] Stop: 06/02/20 20:01 Last Admin: 06/02/20 20:06 Dose: 1 gm Documented by: Lorazepam (Ativan) 1 mg PO ONETIME ONE Stop: 06/03/20 01:46 Last Admin: 06/03/20 01:45 Dose: 1 mg Documented by: Rivaroxaban (Xarelto) 20 mg PO DAILY [facility]
[2020-06-03] MEDS: Cholecalciferol (Vitamin D3) 25 MCG Tab PO SCH (07:33)
[2020-06-03] MEDS: Furosemide 20 MG Tab PO SCH (07:33)
[2020-06-03] MEDS: Atenolol 25 MG Tab PO SCH (07:34)
[2020-06-03] MEDS: Betamethasone Dipropionate/Clotrimazole 0.05-1% Crm 15 GM Tube TOP SCH (07:34)
[2020-06-03 07:35] VITALS: BP 138/95; PULSE 61
== END 2020-06-03 09:00 | disposition home or self-care (01) | DRG 690 ==
LOC: VM.ED 19:52 → UNDOADMOB 20:59 → VM.MS 20:59 → OBSVTOIN 06-01 10:40 → VM.MS 06-01 10:40 → INTOOBSV 06-01 10:40
PROVIDERS: ADMIT Family Medicine; ATTEND Family Medicine
DX: N39.0 Urinary tract infection, site not specified (principal); B37.49 Other urogenital candidiasis; I50.32 Chronic diastolic (congestive) heart failure; Z74.1 Need for assistance with personal care; G89.29 Other chronic pain; M54.5 Low back pain; Z88.6 Allergy status to analgesic agent; J43.9 Emphysema, unspecified; Z91.012 Allergy to eggs; Z91.011 Allergy to milk products; K21.9 Gastro-esophageal reflux disease without esophagitis; R32 Unspecified urinary incontinence; M19.90 Unspecified osteoarthritis, unspecified site; I10 Essential (primary) hypertension; M79.7 Fibromyalgia; E11.9 Type 2 diabetes mellitus without complications; Z79.01 Long term (current) use of anticoagulants; R41.0 Disorientation, unspecified; E66.9 Obesity, unspecified; I48.91 Unspecified atrial fibrillation; I11.0 Hypertensive heart disease with heart failure; E03.9 Hypothyroidism, unspecified; R21 Rash and other nonspecific skin eruption; Z79.899 Other long term (current) drug therapy; Z79.890 Hormone replacement therapy; Z88.0 Allergy status to penicillin; Z88.1 Allergy status to other antibiotic agents; Z88.8 Allergy status to other drugs, medicaments and biological substances; Z90.49 Acquired absence of other specified parts of digestive tract; Z95.0 Presence of cardiac pacemaker; Z78.9 Other specified health status
CPT/HCPCS: 80053; 81001; 83735; 85025; 87086; 87088; 96374; 99285; A9270 ×6; J0696; 99220